=== PATIENT | male | born 1960 | race Caucasian/White ===

== ENCOUNTER 2018-09-24 10:28 | Observation (INO) ==
--- NOTE | 2018-09-14 16:32 | Anesthesiology Consultation ---
Date of Service September 14, 2018 Assessment & Plan (1) Encounter for pre-operative examination: S/P cysto/stent extraction, TURP: 07/30/18: LMA#5 at [facility] Chart Review Chart Review: Acceptable Risk for Surgery and Patient NOT seen in Pre Admission Testing History Surgery Operation Date: 09/24/18 13:10 Proposed Procedures p Transurethral Resection Prostate - Mono SanSanjeev Duran II, DO Height/Weight Height: 6 ft Weight: 102.058 kg Allergies Allergy/AdvReac Type Severity Reaction Status Date / Time No Known Allergies Allergy Verified 09/14/18 13:36 Medications Home Medications Medication Instructions Recorded Confirmed Last Taken meloxicam 15 mg PO BID 07/01/18 09/14/18 08/25/18 tamsulosin [Flomax] 0.8 mg PO HS 07/01/18 09/14/18 08/24/18 finasteride 5 mg PO QAM 07/16/18 09/14/18 08/25/18 Past Medical History Medical History Enlarged prostate (Inactive) Hearing loss in left ear History of acute pancreatitis 4 YR AGO History of bladder stone Snores Past Surgical History Surgical History History of ERCP numerous for exam and stent exchange - no longer has stent History of biliary duct stent placement History of colonoscopy History of cystoscopy for stone removal Social History Smoking Status: Former smoker tobacco type: cigarettes Smoking cigarettes per day: ~2cig/day x 30+ years Do You Dip or Chew Tobacco: No Smoking End Date: 22 YR AGO Hx Alcohol Use: No Hx Substance Use: No substance use type: does not use Testing Laboratory Results 09/10/18 WBC 4.86 H/H 15.0/42.9 PLATELETS 210 SODIUM 139 POTASSIUM 4.4 CHLORIDE 106 CO2 27 BUN 26 CREATININE 0.90 GLUCOSE 95 08/25/18 UA negative bacteria, + epithelials, + WBC, + RBC 08/28/18 URINE CULTURE- coag negative staphylococcus-- rx'd macrobid BID x 7 days per surgeon* Electrocardiogram Date: 07/21/18 SB at 58bpm. Otherwise "normal ECG." Chest X-Ray Date: 07/21/18 Findings: + NAD Cervical Spine Date: 10/15/17 1. No acute cervical spine fracture or subluxation. 2. Moderate disc space narrowing at C5-C6. Otherwise, mild multilevel degenerative changes.
[~2018-09-24 10:28] MED LIST: LR 15ML/HR IV SCH
--- NOTE | 2018-09-24 11:29 | History & Physical Bridge Note ---
Date of Service September 24, 2018 History & Physical Bridge Note I have examined the patient, reviewed the History & Physical and in the interval since the performance of the History & Physical I have noted the following changes of clinical significance: no changes noted
[2018-09-24] MEDS ORDERED: MIDAZOLAM HCL 1 MG/ML 2ML VIAL ONE (12:13)
[2018-09-24] MEDS ORDERED: fentaNYL citrate 100 MCG/2 ML VIAL ONE ×5 (12:13→13:30)
[2018-09-24] MEDS: CEFAZOLIN 2000MG 2,000 MG/15 ML SYR IV SCH ×3 (12:16→20:22)
[2018-09-24] MEDS ORDERED: KETOROLAC 30 MG/ML VIAL IV PRN (12:17)
[2018-09-24] MEDS ORDERED: ONDANSETRON INJ 2 MG/ML 2 ML VIAL IV PRN ×2 (12:17→15:22)
[2018-09-24] MEDS ORDERED: ATROPINE SULFATE 0.1 MG/ML 10ML SYR IV PRN (12:17)
[2018-09-24] MEDS ORDERED: HYDROmorphone INJ 2 MG/ML SYR/VIAL ONE (13:36)
[2018-09-24] MEDS ORDERED: ONDANSETRON INJ 2 MG/ML 2 ML VIAL ONE (13:37)
[2018-09-24] MEDS ORDERED: PROPOFOL IV EMULSION 10 MG/ML 20 ML VIAL IV ONE (13:37)
[2018-09-24] MEDS ORDERED: LIDOCAINE HCL 2% 2 ML VIAL/AMP(20MG/ML) INFIL ONE (13:37)
[2018-09-24] MEDS ORDERED: KETOROLAC 30 MG/ML VIAL ONE (13:37)
[2018-09-24] MEDS ORDERED: DEXAMETHASONE SOD INJ 4 MG/ML VIAL ONE (13:37)
[2018-09-24] MEDS ORDERED: BELLADONNA/OPIUM SUPP 60 MG SUPP PR ONE (13:41)
[2018-09-24] MEDS ORDERED: BELLADONNA/OPIUM SUPP 60 MG SUPP PR PRN ×2 (13:48→15:22)
--- NOTE | 2018-09-24 13:49 | Operative Report ---
Post Operative Report Pre & Post Diagnosis Operation Date: 09/24/18 12:05 Pre-Op Diagnosis: Benign Prostatic Hyperplasia with Retention Post-Op Diagnosis: Benign Prostatic Hyperplasia with Retention Procedure Operation Date: 09/24/18 12:05 Actual Procedures p Transurethral Resection Prostate - Mono Duran II, DO Surgeon Mono Duran II, DO Planetarium Technician None Estimated Blood Loss 10 Findings Consistent with Post-Op Diagnosis Very large lateral lobes with good previous resection of median lobe and no significant median lobe adenoma. Specimens TURP chips. Drains [address]. Anesthesia Type General Complications none Disposition Disposition: Recovery Room Indications Patient with large lateral lobe of prostate with reoccurance of obstruction and gross hematuria. Risks and benefits discussed at length. Description of Procedure Patient was consented and brought back to the operating room. Patient was placed under anesthesia in the supine position and moved to the dorsal lithotomy position. Patient was prepped and draped in the regular sterile fashion. A time out was completed. A 30degree Cystoscope was placed into the bladder and the entire bladder was examined. The UO's were identified. Patient had good resection of the median lobe. The lateral lobes were found to be large and obstructing. The resetion scope was placed. The lateral lobes were resected. A significant anterior portion of tissue was also hanging into the resection Field and this was resected as well. The lateral lobes were resected to the capsule. No bleeding or severe issues or areas of concern were discovered after all bleeding areas were controlled with cautery. A large channel had been created without tissue obstructing. The chips were irrigated and sent for analysis. The bladder was inspected and no areas of concern were discovered. The scope was removed. A [address] catheter was placed and set to drainage. It was irrigated clear. The patient was cleaned, aroused from anesthesia, and transferred to the pacu in stable condition having tolerated the procedure well with no complications. I was present and participated in all aspects of the procedure. The patient will be monitored in the PACU until transferred. I attest to the content of the Intraoperative Record and any orders documented therein. Any exceptions are noted below.
[2018-09-24] MEDS: fentaNYL citrate 100 MCG/2 ML VIAL IV PRN ×4 (13:57→14:12)
--- NOTE | 2018-09-24 14:30 | Anesthesiology Progress Note ---
Date of Service September 24, 2018 Anesthesia Post Procedure Vital Signs Vital Signs: Temp Pulse Resp BP BP Pulse Ox 09/24/18 14:20 69 21 131/84 98 09/24/18 14:10 74 19 130/77 100 09/24/18 14:00 77 20 138/81 100 09/24/18 13:50 36 C L 83 18 131/78 99 09/24/18 10:53 36.8 C 66 18 110/69 97 Pain Intensity Penis: Pain Intensity: 0 Transfer of Care Handoff Completed per policy Notes Mental Status: alert / awake / arousable Patient Amnestic to Procedure: Yes Nausea / Vomiting: adequately controlled Pain: adequately controlled Airway Patency, RR, SpO2: stable & adequate BP & HR: stable & adequate Hydration State: stable & adequate Anesthetic Complications: no major complications apparent
[2018-09-24] MEDS ORDERED: MoRPHine SULFATE 2 MG/ML CARP IV PRN (15:22)
[2018-09-24] MEDS ORDERED: ACETAMINOPHEN 325 MG TAB PO PRN (15:22)
[2018-09-24] MEDS ORDERED: PHENAZOPYRIDINE HCL 200 MG TAB PO PRN (15:22)
[2018-09-24] MEDS: SODIUM CHLORIDE 0.9% 1000ML 1,000 ML IV SCH (15:33)
[2018-09-24] MEDS: OXYCODONE HCL IR 5 MG TAB (IMMEDIATE RELEASE) PO PRN ×2 (15:39→23:35)
[2018-09-24] MEDS: DOCUSATE SODIUM 100 MG CAP PO SCH (20:23)
[2018-09-24] MEDS ORDERED: TAMSULOSIN HCL 0.4 MG CAP PO SCH (21:00)
[2018-09-25] MEDS: SODIUM CHLORIDE 0.9% 1000ML 1,000 ML IV SCH (03:29)
[2018-09-25] MEDS: CEFAZOLIN 2000MG 2,000 MG/15 ML SYR IV SCH (04:35)
[2018-09-25 07:32] LABS: Basophils # (auto) 0.02 K/uL (0-0.2); Basophils % (auto) 0.3 %; Eosinophils # (auto) 0.07 K/uL (0-0.5); Hematocrit (blood only) 39.7 % (42-52); Hemoglobin 13.3 g/dL (14.0-18.0); Immature Granulocytes # (auto) 0.01 K/uL (0.00-0.02); Immature Granulocytes % (auto) 0.1 %; Lymphocytes # (auto) 0.89 K/uL (1.2-3.4); Lymphocytes % (auto) 13.2 %; Mean Corpuscular Hgb Conc 33.5 g/dL (32-36); Mean Corpuscular Volume 93.2 fL (80-100); Mean Platelet Volume 10.1 fL (7.4-10.4); Monocytes # (auto) 0.48 K/uL (0.11-0.59); Monocytes % (auto) 7.1 %; Neutrophils # (auto) 5.28 K/uL (1.4-6.5); Neutrophils % (auto) 78.3 %; Platelet Count 152 K/uL (130-400); RDW Coefficient of Variation 13.3 % (11.5-14.5); RDW Standard Deviation 45.2 fL (36.4-46.3); Red Blood Count 4.26 M/uL (4.7-6.1); White Blood Count 6.75 K/uL (4.8-10.8)
[2018-09-25 08:02] LABS: Albumin Level 3.1 gm/dl (3.4-5.0); BUN Creatinine Ratio 20.4 (10-20); Calcium 8.5 mg/dl (8.5-10.1); Creatinine Clr Calc Pharmacy 100.7 ml/min; Est GFR (African American) 96.4; Est GFR (Non-African American) 83.2; Potassium 4.4 mmol/L (3.5-5.1)
[2018-09-25 08:05] LABS: Albumin Globulin Ratio 1.2 (0.9-2); Bilirubin,Total 0.4 mg/dl (0.2-1); Globulin 2.5 gm/dl (2.5-4.0); Total Protein 5.6 gm/dl (6.4-8.2)
[2018-09-25] MEDS: DOCUSATE SODIUM 100 MG CAP PO SCH (08:11)
[2018-09-25] MEDS ORDERED: FINASTERIDE 5 MG TAB PO SCH (09:00)
--- NOTE | 2018-09-25 10:59 | Urology Progress Note ---
Date of Service September 25, 2018 Assessment & Plan (1) BPH (benign prostatic hyperplasia): POD #1 s/p TURP. Doing very well. Discontinue CBI. Will coordinate discharge with Gill. Worrisome hematuria symptoms discussed. Subjective 58 YO male POD #1 s/p TURP. Patient is feeling well this morning. Walked several laps in hallway. CBI 90% clamped upon exam and tolerating. Urine out clear yellow. Reports some generalized discomfort with Gill, tolerable. No fevers/chills. No nausea/vomiting. Review of Systems Review of Systems: All systems reviewed & are unremarkable except as noted in HPI & below Physical Exam Physical Exam: WN/WD NAD. Resp effort normal. No JVD. Abd soft/nontender. : bladder nontender/nondistended. CBI clamped, clear yellow urine. A&O x3, appropriate affect. Results & Data Vital Signs (Past 12 Hours) Vital Signs Temp Pulse Pulse Resp BP BP Pulse Ox 09/25/18 07:51 36.7 C 62 16 124/80 98 09/25/18 02:52 36.7 C 82 16 109/68 96 09/24/18 23:30 09/24/18 22:58 36.6 C 60 16 112/67 95 Pulse Ox 09/25/18 07:51 09/25/18 02:52 09/24/18 23:30 95 09/24/18 22:58
--- NOTE | 2018-09-28 07:20 | Discharge Summary ---
Date of Service September 28, 2018 Admission HPI Per Admitting Provider See Admission H&P Admission Exam Per Admitting Provider See Admission Note. Principal Diagnosis BPH with obstruction Discharge Exam ENMT Mouth: no dentition abnormality Mallampati Class: I Neck normal visual inspection Respiratory normal respiratory effort Auscultation: lungs clear to auscultation bilaterally Cardiovascular Rate/Rhythm: regular rate and regular rhythm Gastrointestinal (Abdomen) Inspection/Auscultation: abdomen normal to inspection; abdomen not distended Skin no rashes, warm and dry Psychiatric Orientation: alert Genitourinary Gill light pink after clamping CBI Discharge Data Allergies Allergy/AdvReac Type Severity Reaction Status Date / Time No Known Allergies Allergy Verified 09/24/18 10:47 Procedures Performed Operation Date: 09/24/18 12:05 Actual Procedures p Transurethral Resection Prostate(Not Applicable) - Mono Duran II, DO Hospital Course (1) BPH (benign prostatic hyperplasia): POD #1 s/p TURP. Doing very well. Discontinue CBI. Will coordinate discharge with Gill. Worrisome hematuria symptoms discussed. Ready for discharge after staying clear with CBI off. Total Time Total Time Spent Total Time Spent (In Minutes): 10 Total Time Includes: Examination of the Patient, Discharge Planning, Medication Reconciliation and Communication With Other Providers Discharge Plan Discharge Items Patient Disposition: Home - Self-Care Reason For Visit: Benign Prostatic Hyperplasia w/Obstruction, Urina Discharge Diagnosis: same Discharge Goals: Improve disease control and Therapeutic intervention Activity: Per 'Additional Instructions' section Lifting: No more than 10 pounds Bathing Comment: Ok to shower. No soaking in tub/pool. Sexual Activity: Wait until after follow-up appointment Exercise/Sports: Gradually increase as tolerated Driving/Machine Use Comment: Please do not drive while taking Narcotic pain medication. Non-emergency contact: Urologist Call non-emergency contact if: you have any medication questions and your temperature is above 101 Follow-up/Referrals: Josie Wray MD [Primary Care Provider] - Diet: Regular Addtl Provider Instructions: Please keep all follow up appointments at the Urology office as scheduled. Call office at [phone] if you have any questions or concerns. Gill: call us right away if not draining. You will have blood in the urine for the next several weeks. Clean twice daily with soap and water. Antibiotics (Bactrim) finish completely as prescribed. Bowels: Take stool softener (Colace) twice daily for 2 weeks, then as needed for constipation. Pain: take Tylenol for mild discomfort. Take pain medication (Tramadol) as needed for moderate/severe pain. Report to ER if pain is not controlled/worsening. Thanks for allowing us to participate in your care! Prescriptions: New docusate sodium [Colace] 100 mg capsule 100 mg PO BID PRN (Reason: constipation) Qty: 60 RF: 0 sulfamethoxazole-trimethoprim [Bactrim DS] 800-160 mg tablet 1 tab PO BID 5 Days Qty: 10 RF: 0 tramadol 50 mg tablet 50 mg PO Q8H PRN (Reason: pain) Qty: 7 RF: 0 Continued tamsulosin [Flomax] 0.4 mg capsule 0.8 mg PO HS RF: 0 sulfamethoxazole-trimethoprim [Bactrim DS] 800-160 mg Tablet 1 tab PO BID RF: 0 Discontinued finasteride 5 mg Tablet 5 mg PO QAM RF: 0 Stand-Alone Forms: [facility] Discharge Orders: Discharge Order (Routine); Ordered 09/25/18 Ordered By: Dominique Duff Admission Data Admit Date/Time: 09/24/18 14:26 Attending Provider: Mono Duran II Admit Provider: Mono Duran II Primary Care Provider: Josie Wray Service: Surgical Services Other Interventions: Discharge Summary Assessment (RN) Last Done: 09/25/18 11:16 DC Date/Time DO NOT enter until pt leaves facility: 09/25/18 11:41
== END 2018-09-25 11:41 | disposition home or self-care (01) ==
LOC: 3W 10:28 → ASU 10:28

== ENCOUNTER 2021-01-15 12:56 | Inpatient (IN) ==
--- NOTE | 2021-01-15 14:40 | XRay Report ---
TWO VIEW CHEST CLINICAL HISTORY: Cough. FINDINGS: PA and lateral chest radiographs are compared to study dated 07/21/2018. The cardiomediastina l silhouette is unremarkable. Multifocal airspace consolidation is typical for pneumonia. Trace pleur al effusions are suspected There is no pneumothorax. The bony thorax appears intact. IMPRESSION: Multifocal airspace consolidation is typical for pneumonia. Radiographic follow-up to res olution is recommended. ACT 112: Negative or not required by law. Electronically signed by: Brandt Blas M.D. 01/15/2021 2:39 PM
[2021-01-15] MEDS ORDERED: ALBUT/IPRATROP 3MG/0.5MG NEB 3 ML VIAL NEB STA (15:51)
[2021-01-15] MEDS ORDERED: dexAMETHasone**PF** 10 MG/ML VIAL IV ONE (15:51)
[2021-01-15] MEDS ORDERED: SODIUM CHLORIDE 0.9% 1000ML 500 ML IV ONE (15:52)
--- NOTE | 2021-01-15 15:56 | Emergency Department Note ---
Impression & Plan Hypoxia, SOB (shortness of breath), Pneumonia, COVID-19 Admission ED Provider Note NAME: ZEB SEGUNDO AGE: 60 SEX: M : 1960 ARRIVES VIA: Walk-In INFORMANT: [Patient] ED PROVIDER(S): [Brandt Kilgore MD] CHIEF COMPLAINT: Shortness of breath HISTORY OF PRESENT ILLNESS: The patient is a 60-year-old male who presents to the ER with flulike symptoms. He has been sick for 8 days. The patient has had a cough, a stuffy nose, fatigue, weakness, chills, body aches, fever and shortness of breath. He has lost his taste and smell. He has a chest tightness. No vomiting, no diarrhea. The patient is not vaccinated for COVID-19 or influenza. His is sick with similar symptoms. The patient states that for the last several days, his breathing has worsened. He feels quite short of breath. In triage, his oxygen saturation was low and he was placed on oxygen. REVIEW OF SYSTEMS: See HPI for pertinent positives and negatives. A total of ten systems were reviewed and were otherwise negative. PMHx/PSHx: See Below SOCIAL HISTORY: See Below. PHYSICAL EXAM: GENERAL: Patient is in mild respiratory distress. HEENT: No acute trauma, normocephalic atraumatic, mucous membranes moist, no nasal congestion, no scleral icterus. NECK: No stridor, no adenopathy, no meningismus, trachea is midline. LUNGS: Crackles heard bilaterally. Breath sounds diminished. Dry cough noted. Increased respiratory rate, the patient does appear mildly short of breath. No wheezing. HEART: Without murmurs gallops or rubs, regular rate and rhythm. ABDOMEN: Soft, nontender, bowel sounds positive, no hernias, no peritonitis. EXTREMITIES: No cyanosis or edema, full range of motion of all the joints without pain or difficulty, no signs for acute trauma. NEUROLOGIC: Oriented x 3, no acute motor or sensory deficits, no focal weakness. SKIN: No rash, no jaundice, no diaphoresis. DIFFERENTIAL DIAGNOSIS: Reactive airway disease, pneumonia, pneumothorax, COVID-19, influenza, COPD, CHF, infection, cardiac ischemia, pulmonary embolism, bronchitis, musculoskeletal, gastrointestinal, as well as other pathologies. EMERGENCY DEPARTMENT COURSE/PROCEDURES: ECG: Indication was shortness of breath. The ECG shows a normal sinus rhythm with a rate of 82. There is no ST elevation, no PVCs. QTC is 425. Continuous Cardiac Monitoring: An order was placed for continuous cardiac monitoring. The monitor shows a rate of 91 with normal sinus rhythm. Critical Care Note: I have personally spent 43 minutes of critical care time in the direct management of this patient. This includes bedside care, interpretation of diagnostic studies, and testing, discussion with consultants, patient, and family members, and other required patient management activities. This 43 minutes is in excess of all separately billable procedures. MEDICAL DECISION MAKING: There is no leukocytosis, in fact, the white count is somewhat low and more consistent with a viral infection. There is a normal hemoglobin and platelet co unt. No worrisome coagulopathy. Potassium and sodium both slightly low but not in need of emergent correction. No renal failure. No concerning liver enzyme elevation. ECG shows a sinus rhythm, no ST elevation or acute ischemia. Cardiac enzyme testing x1 is not consistent with acute cardiac injury. Covid testing returned positive. Influenza testing returned negative. Chest x-ray does show patchy bilateral infiltrates consistent with pneumonia, likely viral pneumonia. On exam, the patient was visibly short of breath. He was noted to be hypoxic in triage. Patient was given IV saline, 500 cc. He was given oral Tylenol, and a DuoNeb, IV Decadron. He was maintained on O2 supplementation. The patient has Covid pneumonia. He presents hypoxic and visibly short of breath. A hospital stay is warranted. I spoke with the patient and case management. The on-call hospitalist was consulted. Past Med/Surg History Medical History Enlarged prostate Hearing loss in left ear History of acute pancreatitis 4 YR AGO History of bladder stone Hyperglycemia Necrotizing pancreatitis Snores Surgical History History of biliary duct stent placement History of colonoscopy History of cystoscopy for stone removal History of ERCP numerous for exam and stent exchange - no longer has stent Family History Mother Family history of skin cancer Social History Smoking Status: Former smoker Cigarettes Per Day: ~2cig/day x 30+ years; Second Hand Exposure: No; Hx Alcohol Use: No Hx Substance Use: No Preferred Language: Chadian Communication Ability: Effective Visual Impairment: No Limitations Historic Interpreter Required: No Beliefs That Will Affect Care: None Current Living Situation: Spouse Feels Safe at Home: Yes Assistive Devices: Glasses Allergies Allergies Allergy/AdvReac Type Severity Reaction Status Date / Time No Known Allergies Allergy Verified 01/15/21 16:50 Home Meds Home Medications Medication Instructions Recorded Confirmed acetaminophen 500 mg capsule 1,000 mg PO Q6H PRN 01/15/21 01/15/21 ascorbic acid (vitamin C) 125 mg 125 mg PO QAM 01/15/21 01/15/21 chewable tablet (Vitamin C) cholecalciferol (vitamin D3) 25 25 mcg PO QAM 01/15/21 01/15/21 mcg (1,000 unit) tablet (Vitamin D3) zinc 50 mg tablet 50 mg PO QAM 01/15/21 01/15/21 Results & Data (ED) Vital Signs Vital Signs - 24 hr 01/15/21 12:56 01/15/21 13:05 01/15/21 16:35 Temperature 36 C L Temperature Source Temporal Artery Scan Pulse Rate 91 H Pulse Rate [Right Finger] 84 Pulse Rate from SpO2 Sensor Pulse Rhythm Pulse Rhythm [Right Finger] Pulse Strength [Right Finger] Respiratory Rate 18 24 Respiratory Effort / Characteristics Non-Labored Non-Labored Spontaneous Respiratory Depth Normal Respiratory Pattern Regular Blood Pressure 129/78 Blood Pressure [Right Arm] Blood Pressure Mean 95 Blood Pressure Mean [Right Arm] Blood Pressure Position Right Lateral Pulse Oximetry 96 90 94 Oxygen Delivery Method Nasal Cannula Room Air Nasal Cannula Oxygen Flow Rate 4 4 Sepsis Recent Fever Within 48 Hours No Sepsis New/Unexplained Change in Mental Status No Sepsis Action Taken by Nursing No Action Required 01/15/21 16:46 01/15/21 16:47 01/15/21 16:50 Temperature 37.9 C H Temperature Source Oral Pulse Rate 84 Pulse Rate [Right Finger] 85 Pulse Rate from SpO2 Sensor Pulse Rhythm Regular Pulse Rhythm [Right Finger] Regular Pulse Strength [Right Finger] Normal Respiratory Rate 22 22 Respiratory Effort / Characteristics Non-Labored Respiratory Depth Normal Respiratory Pattern Regular Blood Pressure Blood Pressure [Right Arm] 137/87 Blood Pressure Mean Blood Pressure Mean [Right Arm] 103 Blood Pressure Position Pulse Oximetry 95 95 Oxygen Delivery Method Nasal Cannula Nasal Cannula Oxygen Flow Rate 95 Sepsis Recent Fever Within 48 Hours Sepsis New/Unexplained Change in Mental Status Sepsis Action Taken by Nursing 01/15/21 16:56 01/15/21 17:00 01/15/21 17:30 Temperature Temperature Source Pulse Rate 88 87 Pulse Rate [Right Finger] Pulse Rate from SpO2 Sensor 87 89 93 H Pulse Rhythm Pulse Rhythm [Right Finger] Pulse Strength [Right Finger] Respiratory Rate 16 15 Respiratory Effort / Characteristics Respiratory Depth Respiratory Pattern Blood Pressure 137/87 140/91 116/88 Blood Pressure [Right Arm] Blood Pressure Mean 103 107 97 Blood Pressure Mean [Right Arm] Blood Pressure Position Pulse Oximetry 94 95 97 Oxygen Delivery Method Nasal Cannula Nasal Cannula Nasal Cannula Oxygen Flow Rate 4 4 4 Sepsis Recent Fever Within 48 Hours Sepsis New/Unexplained Change in Mental Status Sepsis Action Taken by Retirement Medications Current Medication List: was personally reviewed by me Laboratory Data Attestation: I reviewed the patient's lab results. Result diagrams: 01/15/21 16:43 01/15/21 16:43 Lab Results 01/15/21 01/15/21 01/15/21 Range/Units 16:02 16:02 16:02 WBC (4.8-10.8) K/uL RBC (4.7-6.1) M/uL Hgb (14.0-18.0) g/dL Hct (42-52) % MCV (80-100) fL MCH (25-34) pg MCHC (32-36) g/dL RDW Std Deviation (36.4-46.3) fL RDW Coeff of Nargis (11.5-14.5) % Plt Count (130-400) K/uL MPV (7.4-10.4) fL Immature Gran % (Auto) % Neut % (Auto) % Lymph % (Auto) % [place] % (Auto) % Eos % (Auto) % Baso % (Auto) % Neut # (Auto) (1.4-6.5) K/uL Lymph # (Auto) (1.2-3.4) K/uL [place] # (Auto) (0.11-0.59) K/uL Eos # (Auto) (0-0.5) K/uL Baso # (Auto) (0-0.2) K/uL Immature Gran # (Auto) (0.00-0.02) K/uL PT (9.0-12.0) Seconds INR (0.9-1.1) APTT (21.0-31.0) Seconds PTT Ratio Sodium (136-145) mmol/L Potassium (3.5-5.1) mmol/L Chloride (98-107) mmol/L Carbon Dioxide (21-32) mmol/L Anion Gap (3-11) BUN (7-18) mg/dl Creatinine (0.6-1.4) mg/dl Est Cr Clr Drug Dosing ml/min Est GFR ( Amer) ml/min Est GFR (Non-Af Amer) ml/min BUN/Creatinine Ratio (10-20) Glucose (70-99) mg/dl Calcium (8.5-10.1) mg/dl Magnesium (1.8-2.4) mg/dl Total Bilirubin (0.2-1) mg/dl AST (15-37) U/L ALT (12-78) U/L Alkaline Phosphatase (45-117) U/L Troponin I (0-0.045) ng/ml Total Protein (6.4-8.2) gm/dl Albumin (3.4-5.0) gm/dl Globulin (2.5-4.0) gm/dl Albumin/Globulin Ratio (0.9-2) SARS-CoV-2 (PCR) POSITIVE A* (Negative) Influ A Molecular Assay Negative (Negative) Influ B Molecular Assay Negative (Negative) SARS-CoV-2, RNA, NAAT Cancelled 01/15/21 01/15/21 01/15/21 Range/Units 16:43 16:43 16:43 WBC 3.97 L (4.8-10.8) K/uL RBC 5.02 (4.7-6.1) M/uL Hgb 15.8 (14.0-18.0) g/dL Hct 45.7 (42-52) % MCV 91.0 (80-100) fL MCH 31.5 (25-34) pg MCHC 34.6 (32-36) g/dL RDW Std Deviation 42.4 (36.4-46.3) fL RDW Coeff of Nargis 12.6 (11.5-14.5) % Plt Count 133 (130-400) K/uL MPV 9.3 (7.4-10.4) fL Immature Gran % (Auto) 0.3 % Neut % (Auto) 75.7 % Lymph % (Auto) 17.9 % [place] % (Auto) 5.8 % Eos % (Auto) 0.0 % Baso % (Auto) 0.3 % Neut # (Auto) 3.01 (1.4-6.5) K/uL Lymph # (Auto) 0.71 L (1.2-3.4) K/uL [place] # (Auto) 0.23 (0.11-0.59) K/uL Eos # (Auto) 0.00 (0-0.5) K/uL Baso # (Auto) 0.01 (0-0.2) K/uL Immature Gran # (Auto) 0.01 (0.00-0.02) K/uL PT 10.7 (9.0-12.0) Seconds INR 1.1 (0.9-1.1) APTT 31.2 H (21.0-31.0) Seconds PTT Ratio 1.2 Sodium 134 L (136-145) mmol/L Potassium 3.4 L (3.5-5.1) mmol/L Chloride 98 (98-107) mmol/L Carbon Dioxide 29 (21-32) mmol/L Anion Gap 7.0 (3-11) BUN 21 H (7-18) mg/dl Creatinine 1.16 (0.6-1.4) mg/dl Est Cr Clr Drug Dosing 95.8 ml/min Est GFR ( Amer) 79.4 ml/min Est GFR (Non-Af Amer) 68.5 ml/min BUN/Creatinine Ratio 17.9 (10-20) Glucose 108 H (70-99) mg/dl Calcium 8.8 (8.5-10.1) mg/dl Magnesium 2.2 (1.8-2.4) mg/dl Total Bilirubin 0.6 (0.2-1) mg/dl AST 62 H (15-37) U/L ALT 66 (12-78) U/L Alkaline Phosphatase 63 (45-117) U/L Troponin I < 0.015 (0-0.045) ng/ml Total Protein 7.5 (6.4-8.2) gm/dl Albumin 3.2 L (3.4-5.0) gm/dl Globulin 4.3 H (2.5-4.0) gm/dl Albumin/Globulin Ratio 0.7 L (0.9-2) SARS-CoV-2 (PCR) (Negative) Influ A Molecular Assay (Negative) Influ B Molecular Assay (Negative) SARS-CoV-2, RNA, NAAT Administered Medications Discontinued Medications Acetaminophen (Acetaminophen 500 Mg Tab) 1,000 mg PO NOW STA Stop: 01/15/21 17:02 Last Admin: 01/15/21 17:40 Dose: 1,000 mg Documented by: [id number] Albuterol (Albut/Ipratrop 3mg/0.5mg Neb 3 Ml Vial) 3 ml NEB NOW STA Stop: 01/15/21 15:52 Last Admin: 01/15/21 16:35 Dose: 3 ml Documented by: [id number] Dexamethasone Sodium Phosphate (DexamethasonePf 10 Mg/Ml Vial) 6 mg IV NOW ONE Stop: 01/15/21 15:52 Last Admin: 01/15/21 16:49 Dose: 6 mg Documented by: [id number] Sodium Chloride (Nss 1000ml) 500 mls @ 999 mls/hr IV .Q31M ONE Stop: 01/15/21 16:22 Last Infusion: 01/15/21 17:27 Dose: 0 mls/hr Documented by: [id number] Admin: 01/15/21 16:48 Dose: 999 mls/hr Documented by: [id number] Imaging Data Radiologist's Impression: Chest X-Ray 01/15/21 14:08 TWO VIEW CHEST CLINICAL HISTORY: Cough. FINDINGS: PA and lateral chest radiographs are compared to study dated 07/21/2018. The cardiomediastinal silhouette is unremarkable. Multifocal airspace consolidation is typical for pneumonia. Trace pleural effusions are suspected There is no pneumothorax. The bony thorax appears intact. IMPRESSION: Multifocal airspace consolidation is typical for pneumonia. Radiographic follow-up to resolution is recommended. ACT 112: Negative or not required by law. Electronically signed by: Brandt Blas M.D. 01/15/2021 2:39 PM Discharge Plan Visit Data Chief Complaint: Shortness of Breath/Dyspnea Stated Complaint: CAN'T BREATHE ED Provider: Brandt Kilgore Discharge Problem: Hypoxia, SOB (shortness of breath), Pneumonia, COVID-19 Patient Disposition: Admitted As Inpatient Condition: Fair Forms Stand Alone Forms: Xamarin Prescriptions Prescriptions: No Action zinc 50 mg Tablet 50 mg PO QAM RF: 0 acetaminophen 500 mg Capsule 1,000 mg PO Q6H PRN (Reason: Pain) RF: 0 cholecalciferol (vitamin D3) [Vitamin D3] 25 mcg (1,000 unit) Tablet 25 mcg PO QAM RF: 0 ascorbic acid (vitamin C) [Vitamin C] 125 mg Tablet,Chewable 125 mg PO QAM RF: 0 Referrals Referrals: PCP,NO [Primary Care Provider] - Discharge Problem: Pneumonia Qualifiers: Pneumonia type: due to unspecified organism Laterality: bilateral Lung location: unspecified part of lung Qualified Code(s): J18.9 - Pneumonia, unspecified organism
[2021-01-15 17:01] LABS: Basophils # (auto) 0.01 K/uL (0-0.2); Basophils % (auto) 0.3 %; Hematocrit (blood only) 45.7 % (42-52); Hemoglobin 15.8 g/dL (14.0-18.0); Immature Granulocytes # (auto) 0.01 K/uL (0.00-0.02); Immature Granulocytes % (auto) 0.3 %; Lymphocytes # (auto) 0.71 K/uL (1.2-3.4); Lymphocytes % (auto) 17.9 %; Mean Corpuscular Hemoglobin 31.5 pg (25-34); Mean Corpuscular Hgb Conc 34.6 g/dL (32-36); Mean Platelet Volume 9.3 fL (7.4-10.4); Monocytes # (auto) 0.23 K/uL (0.11-0.59); Monocytes % (auto) 5.8 %; Neutrophils # (auto) 3.01 K/uL (1.4-6.5); Neutrophils % (auto) 75.7 %; Platelet Count 133 K/uL (130-400); RDW Coefficient of Variation 12.6 % (11.5-14.5); RDW Standard Deviation 42.4 fL (36.4-46.3); Red Blood Count 5.02 M/uL (4.7-6.1); White Blood Count 3.97 K/uL (4.8-10.8)
[2021-01-15] MEDS ORDERED: ACETAMINOPHEN 500 MG TAB PO STA (17:01)
[2021-01-15 17:13] LABS: INR 1.1 (0.9-1.1); Partial Thromboplastin Ratio 1.2; Partial Thromboplastin Time 31.2 Seconds (21.0-31.0); Prothrombin Time 10.7 Seconds (9.0-12.0)
[2021-01-15 17:18] LABS: Influenza A virus by PCR Negative (Negative); Influenza B virus by PCR Negative (Negative)
[2021-01-15 17:36] LABS: Alanine Aminotransferase 66 U/L (12-78); Albumin Level 3.2 gm/dl (3.4-5.0); Aspartate Aminotransferase 62 U/L (15-37); BUN Creatinine Ratio 17.9 (10-20); Blood Urea Nitrogen 21 mg/dl (7-18); Calcium 8.8 mg/dl (8.5-10.1); Carbon Dioxide 29 mmol/L (21-32); Chloride 98 mmol/L (98-107); Creatinine Clr Calc Pharmacy 95.8 ml/min; Est GFR (African American) 79.4 ml/min; Est GFR (Non-African American) 68.5 ml/min; Glucose 108 mg/dl (70-99); Magnesium 2.2 mg/dl (1.8-2.4); Potassium 3.4 mmol/L (3.5-5.1); Sodium 134 mmol/L (136-145)
[2021-01-15 17:41] LABS: Albumin Globulin Ratio 0.7 (0.9-2); Alkaline Phosphatase 63 U/L (45-117); Bilirubin,Total 0.6 mg/dl (0.2-1); Globulin 4.3 gm/dl (2.5-4.0); Total Protein 7.5 gm/dl (6.4-8.2); Troponin I < 0.015 ng/ml (0-0.045)
--- NOTE | 2021-01-15 17:58 | Electrocardiogram Report ---
Test Reason : Blood Pressure : / mmHG Vent. Rate : 082 BPM Atrial Rate : 082 BPM P-R Int : 164 ms QRS Dur : 088 ms QT Int : 364 ms P-R-T Axes : 037 -17 036 degrees QTc Int : 425 ms Poor data quality, interpretation may be adversely affected Normal sinus rhythm Possible Left atrial enlargement Abnormal ECG When compared with ECG of 21-JUL-2018 09:34, T wave amplitude has decreased in Anterior leads Confirmed by Alexandru Cedillo ([id number]) on 01/15/2021 5:58:21 PM Referred By: Confirmed By:Daniel Cedillo
--- NOTE | 2021-01-15 18:20 | History & Physical Report ---
Date of Service January 15, 2021 Assessment & Plan (1) COVID-19: Plan: Presents with 9 days of symptoms, hypoxic on arrival, chest x-ray with bilateral infiltrates. With lymphopenia and leukopenia, mild transaminitis, and mild dehydration with hyponatremia and hypokalemia. With fever on arrival here. With risk factor of obesity for severe disease -Admit to medical floor with telemetry, Covid unit/precautions -Continue supplemental O2 to keep pulse ox greater than 90 of 92% -Incentive spirometer, flutter valve -Scheduled duo nebs at least x24 hours -Prone positioning or side positioning encouraged -Follow CBC, CMP, CRP in the morning -Continue dexamethasone 6 mg IV once daily x10-day course -Not a candidate for Remdesivir as he is at day 9 of his illness (2) Pneumonia: Plan: As above, secondary to Covid-19 (3) Hypoxia: Plan: As above, secondary to pneumonia (4) BPH (benign prostatic hyperplasia): Plan: No ongoing issues since TURP (5) Abnormal LFTs: Plan: Mild elevation of AST likely secondary COVID-19 flexion -Follow CMP in the morning (6) Hypokalemia: Plan: Potassium low at 3.4 on arrival, secondary to poor p.o. intake and dehydration Replace with po KCl 20meq po x 1 (7) Epigastric abdominal pain: Plan: Patient with epigastric abdominal pain he feels that is exactly like previous mild flareups of his pancreatitis It does radiate through to the back somewhat and is a 4/10 in severity Tylenol as needed for pain Lipase normal Follow clinically Start Pepcid 20 mg p.o. twice daily in case this is more of a gastritis Plan: DVT prophylaxis-Lovenox 0.5 mg/KG SQ twice daily Disposition-admit to medical/telemetry floor with Covid precautions Full code History of Present Illness Chief Complaint: Shortness of breath Primary Care Provider: NO PCP This patient is a 60-year male with history of BPH and chronic prostatitis now s/p TURP, necrotizing pancreatitis, and a former smoker, who presents to the ER with 8 days of cough, stuffy nose, fatigue, weakness, body aches, and fever/chills and shortness of breath. He also complains of a loss of taste and smell and chest tightness. No nausea/vomiting or diarrhea. He does feel some epigastric abdominal pain that is typical for him when he has a mild flareup of his pancreatitis. His is sick with similar symptoms. He is not vaccinated for Covid. In the ER, he was found to be Covid-19+, flu A/B-, with leukopenia and lymphopenia on CBC, mild hypokalemia and hyponatremia, mild elevation of AST, negative troponin. His chest x-ray showed a multifocal airspace consolidation typical for bilateral pneumonia with trace pleural effusions. He was noted to be hypoxic and was placed on 4 L nasal cannula, he also had a fever in the ER. He will be admitted for Covid-19 with pneumonia and acute respiratory failure with hypoxia. Allergies Allergy/AdvReac Type Severity Reaction Status Date / Time No Known Allergies Allergy Verified 01/15/21 16:50 Home Medications Medication Instructions Recorded Confirmed Type acetaminophen 500 mg capsule 1,000 mg PO Q6H PRN 01/15/21 01/15/21 History ascorbic acid (vitamin C) 125 mg 125 mg PO QAM 01/15/21 01/15/21 History chewable tablet (Vitamin C) cholecalciferol (vitamin D3) 25 25 mcg PO QAM 01/15/21 01/15/21 History mcg (1,000 unit) tablet (Vitamin D3) zinc 50 mg tablet 50 mg PO QAM 01/15/21 01/15/21 History Past Med/Surg History Medical History (Updated 01/15/21 @ 22:59 by Sarita Morin MD) Enlarged prostate Hearing loss in left ear History of acute pancreatitis 4 YR AGO History of bladder stone Hyperglycemia Necrotizing pancreatitis Snores Surgical History History of biliary duct stent placement History of colonoscopy History of cystoscopy for stone removal History of ERCP numerous for exam and stent exchange - no longer has stent Family History Mother Family history of skin cancer Social History (Updated 01/15/21 @ 22:46 by Sarita Morin MD) Smoking Status: Former smoker Age Quit Using Tobacco: 30; Cigarettes Per Day: ~2cig/day x 30+ years; Second Hand Exposure: No; Do You Dip or Chew Tobacco: No; Hx Alcohol Use: No Hx Substance Use: No Preferred Language: Luxembourgish Communication Ability: Effective Visual Impairment: No Limitations Shoeblack Required: No Beliefs That Will Affect Care: None Current Living Situation: Spouse Other Information That Helps Us Care for You: No Feels Safe at Home: Yes Safety Concerns: Feels Safe At This Time Assistive Devices: Glasses Review of Systems Review of Systems: All systems reviewed & are unremarkable except as noted in HPI & below Physical Exam Constitutional: WD/WN, vitals as above Eyes: PERRL, conjunctivae normal, anicteric sclerae ENMT: external ear and nose normal, oropharynx normal Neck: trachea midline, no thyromegaly Respiratory: normal respiratory effort and + cough Auscultation: + crackles (lower lung doyle bilat); no rhonchi and no wheezes Cardiovascular: RRR, no murmur, no edema Chest (Breasts): Chest: normal inspection of chest Gastrointestinal (Abdomen): normal bowel sounds, soft, nontender, no hepatosplenomegaly Musculoskeletal: Extremities: extremities normal to inspection; no cyanosis and no clubbing Skin: no rashes, warm and dry Neurologic: moves all extremities and awake; no focal motor deficits Psychiatric: A+Ox3, euthymic affect Lymphatic: no lymphedema Results & Data Results & Data ([facility]) Vital Signs (Past 12 Hours) Vital Signs Temp Pulse Pulse Resp BP BP Pulse Ox 01/15/21 17:30 116/88 97 01/15/21 17:00 87 15 140/91 95 01/15/21 16:56 88 16 137/87 94 01/15/21 16:50 37.9 C H 01/15/21 16:47 85 22 137/87 95 01/15/21 16:46 84 22 95 01/15/21 16:35 84 24 94 01/15/21 13:05 36 C L 91 H 18 129/78 90 01/15/21 12:56 96 Laboratory Results 01/15/21 01/15/21 01/15/21 Range/Units 16:43 16:43 16:43 WBC 3.97 L (4.8-10.8) K/uL RBC 5.02 (4.7-6.1) M/uL Hgb 15.8 (14.0-18.0) g/dL Hct 45.7 (42-52) % MCV 91.0 (80-100) fL MCH 31.5 (25-34) pg MCHC 34.6 (32-36) g/dL RDW Std Deviation 42.4 (36.4-46.3) fL RDW Coeff of Nargis 12.6 (11.5-14.5) % Plt Count 133 (130-400) K/uL MPV 9.3 (7.4-10.4) fL Immature Gran % (Auto) 0.3 % Neut % (Auto) 75.7 % Lymph % (Auto) 17.9 % [place] % (Auto) 5.8 % Eos % (Auto) 0.0 % Baso % (Auto) 0.3 % Neut # (Auto) 3.01 (1.4-6.5) K/uL Lymph # (Auto) 0.71 L (1.2-3.4) K/uL [place] # (Auto) 0.23 (0.11-0.59) K/uL Eos # (Auto) 0.00 (0-0.5) K/uL Baso # (Auto) 0.01 (0-0.2) K/uL Immature Gran # (Auto) 0.01 (0.00-0.02) K/uL PT 10.7 (9.0-12.0) Seconds INR 1.1 (0.9-1.1) APTT 31.2 H (21.0-31.0) Seconds PTT Ratio 1.2 Sodium 134 L (136-145) mmol/L Potassium 3.4 L (3.5-5.1) mmol/L Chloride 98 (98-107) mmol/L Carbon Dioxide 29 (21-32) mmol/L Anion Gap 7.0 (3-11) BUN 21 H (7-18) mg/dl Creatinine 1.16 (0.6-1.4) mg/dl Est Cr Clr Drug Dosing 95.8 ml/min Est GFR ( Amer) 79.4 ml/min Est GFR (Non-Af Amer) 68.5 ml/min BUN/Creatinine Ratio 17.9 (10-20) Glucose 108 H (70-99) mg/dl Calcium 8.8 (8.5-10.1) mg/dl Magnesium 2.2 (1.8-2.4) mg/dl Total Bilirubin 0.6 (0.2-1) mg/dl AST 62 H (15-37) U/L ALT 66 (12-78) U/L Alkaline Phosphatase 63 (45-117) U/L Troponin I < 0.015 (0-0.045) ng/ml Total Protein 7.5 (6.4-8.2) gm/dl Albumin 3.2 L (3.4-5.0) gm/dl Globulin 4.3 H (2.5-4.0) gm/dl Albumin/Globulin Ratio 0.7 L (0.9-2) SARS-CoV-2 (PCR) (Negative) Influ A Molecular Assay (Negative) Influ B Molecular Assay (Negative) SARS-CoV-2, RNA, NAAT 01/15/21 01/15/21 01/15/21 Range/Units 16:02 16:02 16:02 WBC (4.8-10.8) K/uL RBC (4.7-6.1) M/uL Hgb (14.0-18.0) g/dL Hct (42-52) % MCV (80-100) fL MCH (25-34) pg MCHC (32-36) g/dL RDW Std Deviation (36.4-46.3) fL RDW Coeff of Nargis (11.5-14.5) % Plt Count (130-400) K/uL MPV (7.4-10.4) fL Immature Gran % (Auto) % Neut % (Auto) % Lymph % (Auto) % [place] % (Auto) % Eos % (Auto) % Baso % (Auto) % Neut # (Auto) (1.4-6.5) K/uL Lymph # (Auto) (1.2-3.4) K/uL [place] # (Auto) (0.11-0.59) K/uL Eos # (Auto) (0-0.5) K/uL Baso # (Auto) (0-0.2) K/uL Immature Gran # (Auto) (0.00-0.02) K/uL PT (9.0-12.0) Seconds INR (0.9-1.1) APTT (21.0-31.0) Seconds PTT Ratio Sodium (136-145) mmol/L Potassium (3.5-5.1) mmol/L Chloride (98-107) mmol/L Carbon Dioxide (21-32) mmol/L Anion Gap (3-11) BUN (7-18) mg/dl Creatinine (0.6-1.4) mg/dl Est Cr Clr Drug Dosing ml/min Est GFR ( Amer) ml/min Est GFR (Non-Af Amer) ml/min BUN/Creatinine Ratio (10-20) Glucose (70-99) mg/dl Calcium (8.5-10.1) mg/dl Magnesium (1.8-2.4) mg/dl Total Bilirubin (0.2-1) mg/dl AST (15-37) U/L ALT (12-78) U/L Alkaline Phosphatase (45-117) U/L Troponin I (0-0.045) ng/ml Total Protein (6.4-8.2) gm/dl Albumin (3.4-5.0) gm/dl Globulin (2.5-4.0) gm/dl Albumin/Globulin Ratio (0.9-2) SARS-CoV-2 (PCR) POSITIVE A* (Negative) Influ A Molecular Assay Negative (Negative) Influ B Molecular Assay Negative (Negative) SARS-CoV-2, RNA, NAAT Cancelled Diagnostic Findings Chest x-ray image personally reviewed by me and agree with the following report: Chest X-Ray 01/15/21 14:08 TWO VIEW CHEST CLINICAL HISTORY: Cough. FINDINGS: PA and lateral chest radiographs are compared to study dated 07/21/2018. The cardiomediastinal silhouette is unremarkable. Multifocal airspace consolidation is typical for pneumonia. Trace pleural effusions are suspected There is no pneumothorax. The bony thorax appears intact. IMPRESSION: Multifocal airspace consolidation is typical for pneumonia. Radiographic follow-up to resolution is recommended. ACT 112: Negative or not required by law. Electronically signed by: Brandt Blas M.D. 01/15/2021 2:39 PM ECG Additional Comments: ECG on 01/15/2021 at 1612 with normal sinus rhythm, normal rate, no ischemic changes Code Status & VTE Plan Code Status Full code VTE Prophylaxis Plan VTE Prophylaxis will be ordered: Yes PG Care Time/CCT Total # of Minutes Spent Total Time Spent with Patient: Total time spent is greater than 50% in coordination of care (as documented) at patient's floor/unit and/or counseling patient: Coding Level of Care Code 93355 Initial Inpt Care Lvl 3 Diagnoses Hypoxia R09.02 COVID-19 U07.1 Pneumonia J18.9 Laterality: bilateral Lung location: unspecified part of lung Pneumonia type: due to unspecified organism BPH (benign prostatic hyperplasia) N40.0 Abnormal LFTs R94.5 Hypokalemia E87.6 Epigastric abdominal pain R10.13 (1) Pneumonia Laterality: bilateral Lung location: unspecified part of lung Pneumonia type: due to unspecified organism Qualified Code(s): J18.9 - Pneumonia, unspecified organism
[2021-01-15] MEDS ORDERED: ENOXAPARIN 0.5 MG/KG SQ SCH (22:12)
[2021-01-15] MEDS ORDERED: ONDANSETRON INJ 2 MG/ML 2 ML VIAL IV PRN (22:12)
[2021-01-15] MEDS: ALBUT/IPRATROP 3MG/0.5MG NEB 3 ML VIAL NEB SCH (22:53)
[2021-01-15] MEDS ORDERED: POTASSIUM CHLORIDE CRTAB 20 MEQ TABCR PO STA (22:57)
[2021-01-16] MEDS: ENOXAPARIN 80 MG/0.8 ML SYR SQ SCH ×2 (00:28→08:42)
[2021-01-16] MEDS: FAMOTIDINE 20 MG TAB PO SCH ×2 (00:28→08:42)
[2021-01-16 06:20] LABS: Hematocrit (blood only) 41.4 % (42-52); Hemoglobin 14.4 g/dL (14.0-18.0); Lymphocytes # (auto) 0.47 K/uL (1.2-3.4); Lymphocytes % (auto) 16.4 %; Mean Corpuscular Hemoglobin 31.3 pg (25-34); Mean Corpuscular Hgb Conc 34.8 g/dL (32-36); Mean Platelet Volume 9.2 fL (7.4-10.4); Monocytes # (auto) 0.15 K/uL (0.11-0.59); Monocytes % (auto) 5.2 %; Neutrophils # (auto) 2.25 K/uL (1.4-6.5); Neutrophils % (auto) 78.4 %; Platelet Count 126 K/uL (130-400); RDW Coefficient of Variation 12.6 % (11.5-14.5); RDW Standard Deviation 41.8 fL (36.4-46.3); White Blood Count 2.87 K/uL (4.8-10.8)
[2021-01-16 07:06] LABS: Albumin Globulin Ratio 0.7 (0.9-2); Albumin Level 2.6 gm/dl (3.4-5.0); BUN Creatinine Ratio 20.7 (10-20); Bilirubin,Total 0.5 mg/dl (0.2-1); C Reactive Protein 7.04 mg/dl (0-0.29); Calcium 8.4 mg/dl (8.5-10.1); Creatinine Clr Calc Pharmacy 129.5 ml/min; Est GFR (African American) 109.5 ml/min; Est GFR (Non-African American) 94.5 ml/min; Globulin 3.8 gm/dl (2.5-4.0); Magnesium 2.2 mg/dl (1.8-2.4); Total Protein 6.4 gm/dl (6.4-8.2)
[2021-01-16 07:08] LABS: RBC Morphology Unremarkable
[2021-01-16] MEDS: ALBUT/IPRATROP 3MG/0.5MG NEB 3 ML VIAL NEB SCH ×3 (07:24→13:51)
[2021-01-16] MEDS: ASCORBIC ACID 500 MG TAB PO SCH (08:42)
[2021-01-16] MEDS: ZINC SULFATE 220 MG CAPSULE PO SCH (08:42)
[2021-01-16] MEDS: CHOLECALCIFEROL 1,000 UNITS 25 MCG TAB PO SCH (08:42)
[2021-01-16] MEDS ORDERED: DEXAMETHASONE SOD INJ 4 MG/ML VIAL ONE (08:50)
[2021-01-16] MEDS: ACETAMINOPHEN 500 MG TAB PO PRN ×2 (08:55→21:30)
[2021-01-16] MEDS: dexAMETHasone 6 MG in SYRINGE 0 ML IV SCH (08:55)
[2021-01-16] MEDS ORDERED: ALBUT/IPRATROP 3MG/0.5MG NEB 3 ML VIAL NEB PRN (16:16)
--- NOTE | 2021-01-16 20:01 | Hospitalist Progress Note ---
Date of Service January 16, 2021 Assessment & Plan (1) Acute respiratory failure with hypoxia: Plan: 2nd to #2 below. Thus far stable on [place] O2. (2) Pneumonia due to COVID-19 virus: Plan: He is about 10 days into his illness. Day #2 of dexamethasone 6mg IV daily. Given where he is in his illness Remdesivir to be of little benefit - thus deferred. We discussed proning - gave him handout on such. Cont flutter. Add incentive. Add mucinex. I am concerned by his poor airation - at risk of worsening disease - again self- proning heavily encouraged. CRP mild-moderately high - repeat in am. Check procal in am. (3) History of acute pancreatitis: Plan: Noted. Lipase yesterday normal. Lipase today normal. This does not rule out pancreatitis but makes it less likely. If pain recurs then CT a/p. (4) BPH (benign prostatic hyperplasia): Plan: On no meds for such. (5) Leukopenia: Plan: 2nd to #2 Trend CBC (6) Thrombocytopenia: Plan: 2nd to #2 Trend CBC (7) Elevated AST (SGOT): Plan: likely due to COVID infection trend check a CPK in the am to be complete (8) Obesity (BMI 30-39.9): Plan: BMI 38 (9) Hypokalemia: Plan: replaced & resolved (10) DVT prophylaxis: Plan: lovenox 0.5mg/kg BID Plan: left message for on her voicemail this evening will try to call again tomorrow Admission and Anticipated Discharge Date Admission Date: January 15, 2021 Subjective patient states that upper abd pain - which reminded him of his prior pancreatit is - is resolved today he did eat breakfast today - the "first food I've had in a while" no nausea/emesis continues with dry cough has NAYLOR; no dyspnea at rest no fevers lost taste and smell - has not returned Review of Systems Review of Systems: gen - no fevers, no chills CV - no chest pain, no orthopnea pulm - no sputum GI - no N/V musculo - no myalgias Physical Exam Physical Exam: gen - obese, NAD, coughs when he tries to take deep breaths neck - no JVD mouth - MMM heart - RRR, s1 s2, no murmur lungs - very poor airation, coughs with any deep breathing, no wheeze, mild rales bases; no increased work of breathing abd - soft NT ND BS+ ext - no edema, pulses 2+ b/l Results & Data Results & Data ([facility]) Vital Signs (Past 12 Hours) Vital Signs Temp Pulse Resp BP Pulse Ox 01/16/21 18:09 93 01/16/21 18:00 81 22 149/91 H 89 L 01/16/21 14:36 82 18 92 01/16/21 13:50 82 20 92 01/16/21 12:57 81 18 124/69 94 01/16/21 10:06 90 20 93 01/16/21 09:29 37.6 C H 90 18 94 Laboratory Results Laboratory Results - last 24 hr 01/16/21 01/16/21 01/16/21 06:01 06:01 06:01 WBC 2.87 L RBC 4.60 L Hgb 14.4 Hct 41.4 L MCV 90.0 MCH 31.3 MCHC 34.8 RDW Std Deviation 41.8 RDW Coeff of Nargis 12.6 Plt Count 126 L MPV 9.2 Immature Gran % (Auto) 0.0 Neut % (Auto) 78.4 Lymph % (Auto) 16.4 [place] % (Auto) 5.2 Eos % (Auto) 0.0 Baso % (Auto) 0.0 Neut # (Auto) 2.25 Lymph # (Auto) 0.47 L [place] # (Auto) 0.15 Eos # (Auto) 0.00 Baso # (Auto) 0.00 Immature Gran # (Auto) 0.00 RBC Morphology Unremarkable Sodium 136 Potassium 4.0 D Chloride 103 Carbon Dioxide 30 Anion Gap 3.0 BUN 18 Creatinine 0.87 Est Cr Clr Drug Dosing 129.5 Est GFR ( Amer) 109.5 Est GFR (Non-Af Amer) 94.5 BUN/Creatinine Ratio 20.7 H Glucose 131 H Calcium 8.4 L Magnesium 2.2 Total Bilirubin 0.5 AST 54 H ALT 60 Alkaline Phosphatase 54 C-Reactive Protein 7.04 H Total Protein 6.4 Albumin 2.6 L Globulin 3.8 Albumin/Globulin Ratio 0.7 L Lipase Hepatitis C Ab Screen Neg 01/16/21 06:01 WBC RBC Hgb Hct MCV MCH MCHC RDW Std Deviation RDW Coeff of Nargis Plt Count MPV Immature Gran % (Auto) Neut % (Auto) Lymph % (Auto) [place] % (Auto) Eos % (Auto) Baso % (Auto) Neut # (Auto) Lymph # (Auto) [place] # (Auto) Eos # (Auto) Baso # (Auto) Immature Gran # (Auto) RBC Morphology Sodium Potassium Chloride Carbon Dioxide Anion Gap BUN Creatinine Est Cr Clr Drug Dosing Est GFR ( Amer) Est GFR (Non-Af Amer) BUN/Creatinine Ratio Glucose Calcium Magnesium Total Bilirubin AST ALT Alkaline Phosphatase C-Reactive Protein Total Protein Albumin Globulin Albumin/Globulin Ratio Lipase 101 Hepatitis C Ab Screen PG Care Time/CCT Total # of Minutes Spent Total Time Spent with Patient: Total time spent is greater than 50% in coordination of care (as documented) at patient's floor/unit and/or counseling patient: Coding Level of Care Code 49886 Subseq Hosp Care Lvl 2 Diagnoses Acute respiratory failure with hypoxia J96.01 Pneumonia due to COVID-19 virus U07.1; J12.82 History of acute pancreatitis Z87.19 BPH (benign prostatic hyperplasia) N40.0 Leukopenia D72.819 Thrombocytopenia D69.6 Elevated AST (SGOT) R74.01 Obesity (BMI 30-39.9) E66.9 DVT prophylaxis Z29.9 Hypokalemia E87.6
[2021-01-17] MEDS: ENOXAPARIN 80 MG/0.8 ML SYR SQ SCH ×3 (00:11→20:59)
[2021-01-17] MEDS: FAMOTIDINE 20 MG TAB PO SCH ×3 (00:12→21:01)
[2021-01-17 06:49] LABS: Hematocrit (blood only) 41.7 % (42-52); Hemoglobin 14.3 g/dL (14.0-18.0); Mean Corpuscular Hemoglobin 31.3 pg (25-34); Mean Corpuscular Hgb Conc 34.3 g/dL (32-36); Mean Corpuscular Volume 91.2 fL (80-100); Mean Platelet Volume 9.2 fL (7.4-10.4); Platelet Count 158 K/uL (130-400); RDW Coefficient of Variation 12.5 % (11.5-14.5); RDW Standard Deviation 41.8 fL (36.4-46.3); Red Blood Count 4.57 M/uL (4.7-6.1); White Blood Count 4.88 K/uL (4.8-10.8)
[2021-01-17 07:27] LABS: BUN Creatinine Ratio 22.1 (10-20); Calcium 8.8 mg/dl (8.5-10.1); Creatinine Clr Calc Pharmacy 135.2 ml/min; Est GFR (African American) 111.6 ml/min; Est GFR (Non-African American) 96.3 ml/min; Potassium 3.9 mmol/L (3.5-5.1)
[2021-01-17 07:31] LABS: C Reactive Protein 4.28 mg/dl (0-0.29)
[2021-01-17] MEDS: dexAMETHasone 6 MG in SYRINGE 0 ML IV SCH (08:41)
[2021-01-17] MEDS: ASCORBIC ACID 500 MG TAB PO SCH (08:41)
[2021-01-17] MEDS: CHOLECALCIFEROL 1,000 UNITS 25 MCG TAB PO SCH (08:43)
[2021-01-17] MEDS: ZINC SULFATE 220 MG CAPSULE PO SCH (08:43)
--- NOTE | 2021-01-17 19:42 | Hospitalist Progress Note ---
Date of Service January 17, 2021 Assessment & Plan (1) Acute respiratory failure with hypoxia: Plan: 2nd to #2 below. stable on [place] O2. (2) Pneumonia due to COVID-19 virus: Plan: He is about 11 days into his illness. Day #3 of dexamethasone 6mg IV daily. Remdesivir deferred. Cont proning. Cont flutter. Cont mucinex. Procal noted to be negative. Deferring on abx. Crp improved today. (3) History of acute pancreatitis: Plan: Noted. Lipase neg x 2 while here. This does not rule out pancreatitis but makes it much less likely. If pain recurs then CT a/p. (4) BPH (benign prostatic hyperplasia): Plan: On no meds for such. (5) Leukopenia: Plan: 2nd to #2 resolved (6) Thrombocytopenia: Plan: 2nd to #2 resolved (7) Elevated AST (SGOT): Plan: likely due to COVID infection trend CPK wnl today (8) Obesity (BMI 30-39.9): Plan: BMI 38 (9) Hypokalemia: Plan: replaced & resolved (10) DVT prophylaxis: Plan: lovenox 0.5mg/kg BID Plan: left message for on her voicemail this evening and yesterday evening called pt/'s landline - she did not answer Admission and Anticipated Discharge Date Admission Date: January 15, 2021 Subjective overall feels better than yesterday feels he can take larger breaths coughing but still dry mild NAYLOR only; no dyspnea at rest no recurrent abdominal pain had good bowel movement overnight no diarrhea continues to prone asks if he can take a larger vitamin D supplement Review of Systems Review of Systems: gen - no fevers or chills cv - no chest pain gi - no pain, nausea or emesis Physical Exam Physical Exam: gen - obese, NAD neck - no JVD mouth - MMM heart - RRR, s1 s2, no murmur lungs - b/l rales bases, airation improved today, no wheeze; no increased work of breathing abd - soft NT ND BS+ ext - no edema, pulses 2+ b/l Results & Data Results & Data ([facility]) Vital Signs (Past 12 Hours) Vital Signs Temp Pulse Pulse Resp BP Pulse Ox 01/17/21 19:22 37.1 C 72 17 116/75 95 01/17/21 17:59 70 01/17/21 16:28 37.1 C 69 24 123/80 94 01/17/21 11:54 36.8 C 76 20 137/74 92 01/17/21 11:46 81 01/17/21 08:01 37.0 C 96 H 17 134/86 95 Laboratory Results Laboratory Results - last 24 hr 01/17/21 01/17/21 01/17/21 06:20 06:20 06:20 WBC 4.88 RBC 4.57 L Hgb 14.3 Hct 41.7 L MCV 91.2 MCH 31.3 MCHC 34.3 RDW Std Deviation 41.8 RDW Coeff of Nargis 12.5 Plt Count 158 MPV 9.2 Sodium 138 Potassium 3.9 Chloride 104 Carbon Dioxide 30 Anion Gap 4.0 BUN 18 Creatinine 0.83 Est Cr Clr Drug Dosing 135.2 Est GFR ( Amer) 111.6 Est GFR (Non-Af Amer) 96.3 BUN/Creatinine Ratio 22.1 H Glucose 108 H Calcium 8.8 AST 57 H Total Creatine Kinase 289 C-Reactive Protein 4.28 H Procalcitonin < 0.05 PG Care Time/CCT Total # of Minutes Spent Total Time Spent with Patient: Total time spent is greater than 50% in coordination of care (as documented) at patient's floor/unit and/or counseling patient: Coding Level of Care Code 65433 Subseq Hosp Care Lvl 2 Diagnoses Acute respiratory failure with hypoxia J96.01 Pneumonia due to COVID-19 virus U07.1; J12.82 History of acute pancreatitis Z87.19 BPH (benign prostatic hyperplasia) N40.0 Leukopenia D72.819 Thrombocytopenia D69.6 Elevated AST (SGOT) R74.01 Obesity (BMI 30-39.9) E66.9 Hypokalemia E87.6 DVT prophylaxis Z29.9
[2021-01-18 06:45] LABS: BUN Creatinine Ratio 27.6 (10-20); Calcium 8.7 mg/dl (8.5-10.1); Creatinine Clr Calc Pharmacy 144.5 ml/min; Est GFR (African American) 114.5 ml/min; Est GFR (Non-African American) 98.8 ml/min
[2021-01-18] MEDS: dexAMETHasone 6 MG in SYRINGE 0 ML IV SCH (08:27)
[2021-01-18] MEDS: CHOLECALCIFEROL 1,000 UNITS 25 MCG TAB PO SCH (08:28)
[2021-01-18] MEDS: FAMOTIDINE 20 MG TAB PO SCH ×2 (08:28→19:50)
[2021-01-18] MEDS: ZINC SULFATE 220 MG CAPSULE PO SCH (08:29)
[2021-01-18] MEDS: ASCORBIC ACID 500 MG TAB PO SCH (08:29)
[2021-01-18] MEDS: ENOXAPARIN 80 MG/0.8 ML SYR SQ SCH (08:30)
[2021-01-18] MEDS ORDERED: HYDROcodone/HOMATROPINE SYRUP 5MG/1.5MG 5ML UDP PO PRN (16:52)
[2021-01-18] MEDS ORDERED: FUROSEMIDE 20 MG TAB PO ONE (17:45)
[2021-01-18] MEDS ORDERED: POTASSIUM CHLORIDE CRTAB 20 MEQ TABCR PO STA (17:45)
--- NOTE | 2021-01-18 19:34 | Hospitalist Progress Note ---
Date of Service January 18, 2021 Assessment & Plan (1) Acute respiratory failure with hypoxia: Plan: 2nd to #2 below. stable on [place] O2. (2) Pneumonia due to COVID-19 virus: Plan: He is about 12 days into his illness. Day #4 of dexamethasone 6mg IV daily. Remdesivir deferred. Cont proning. Cont flutter. Cont mucinex. Procal noted to be negative. Deferring on abx. To keep neg fluid balance - lasix 20mg po x 1, repeat labs am. Cont supportive care. (3) History of acute pancreatitis: Plan: Noted. Lipase neg x 2 while here. He had abd pain on day of presentation but has not recurred. Likely did not have pancreatitis. Perhaps he had gastritis from COVID at time of presentation. (4) BPH (benign prostatic hyperplasia): Plan: On no meds for such. Voiding fine. (5) Leukopenia: Plan: 2nd to #2 resolved (6) Thrombocytopenia: Plan: 2nd to #2 resolved (7) Elevated AST (SGOT): Plan: likely due to COVID infection trend CPK wnl (8) Obesity (BMI 30-39.9): Plan: BMI 38 (9) Hypokalemia: Plan: replaced & resolved (10) DVT prophylaxis: Plan: lovenox 40mg BID Plan: finally connected with pt's by phone today gave update, questions answered Admission and Anticipated Discharge Date Admission Date: January 15, 2021 Subjective "I'm feeling better" can take deeper breaths still coughing - no sputum eating is robust no diarrhea no nausea no pleuritic chest pain or tightness he continues to prone no new complaints tele overnight Review of Systems Review of Systems: gen - no fevers/chills CV - no cp pulm - dyspnea on exertion present GI - no vomiting Physical Exam Physical Exam: gen - obese, NAD, looks better today neck - no JVD mouth - MMM heart - RRR, s1 s2, no murmur lungs - b/l rales bases - about 1/2 way up back; no wheeze; airation improving abd - soft NT ND BS+ ext - no edema, pulses 2+ b/l psych - a/o x 3 Results & Data Results & Data ([facility]) Vital Signs (Past 12 Hours) Vital Signs Temp Pulse Pulse Resp BP Pulse Ox 01/18/21 16:36 36.8 C 59 L 18 135/79 93 01/18/21 16:00 59 L 01/18/21 11:14 36.8 C 66 16 130/80 97 01/18/21 08:00 36.7 C 70 18 127/74 92 01/18/21 07:54 50 L Laboratory Results Laboratory Results - last 24 hr 01/18/21 01/18/21 05:26 05:26 Sodium 139 Potassium 4.0 Chloride 106 Carbon Dioxide 29 Anion Gap 4.0 BUN 22 H Creatinine 0.78 Est Cr Clr Drug Dosing 144.5 Est GFR ( Amer) 114.5 Est GFR (Non-Af Amer) 98.8 BUN/Creatinine Ratio 27.6 H Glucose 116 H Calcium 8.7 AST 52 H 25-OH Vitamin D Total 54.8 PG Care Time/CCT Total # of Minutes Spent Total Time Spent with Patient: Total time spent is greater than 50% in coordination of care (as documented) at patient's floor/unit and/or counseling patient: Coding Level of Care Code 63962 Subseq Hosp Care Lvl 2 Diagnoses Acute respiratory failure with hypoxia J96.01 Pneumonia due to COVID-19 virus U07.1; J12.82 History of acute pancreatitis Z87.19 BPH (benign prostatic hyperplasia) N40.0 Leukopenia D72.819 Thrombocytopenia D69.6 Elevated AST (SGOT) R74.01 Obesity (BMI 30-39.9) E66.9 Hypokalemia E87.6 DVT prophylaxis Z29.9
[2021-01-18] MEDS: guaiFENesin 600 MG TABCR PO SCH (19:49)
[2021-01-18] MEDS: ENOXAPARIN INJ 40 MG/0.4 ML SYR SQ SCH (19:50)
[2021-01-18] MEDS ORDERED: ENOXAPARIN 80 MG/0.8 ML SYR SQ SCH (21:00)
[2021-01-19] MEDS: dexAMETHasone 6 MG in SYRINGE 0 ML IV SCH (08:11)
[2021-01-19] MEDS: CHOLECALCIFEROL 1,000 UNITS 25 MCG TAB PO SCH (08:12)
[2021-01-19] MEDS: guaiFENesin 600 MG TABCR PO SCH ×2 (08:12→20:33)
[2021-01-19] MEDS: ZINC SULFATE 220 MG CAPSULE PO SCH (08:12)
[2021-01-19] MEDS: ASCORBIC ACID 500 MG TAB PO SCH (08:12)
[2021-01-19] MEDS: ENOXAPARIN INJ 40 MG/0.4 ML SYR SQ SCH ×2 (08:13→20:32)
[2021-01-19] MEDS: FAMOTIDINE 20 MG TAB PO SCH ×2 (08:13→20:33)
[2021-01-19 09:25] LABS: BUN Creatinine Ratio 27.2 (10-20); Calcium 8.8 mg/dl (8.5-10.1); Creatinine Clr Calc Pharmacy 129.9 ml/min; Est GFR (African American) 112.7 ml/min; Est GFR (Non-African American) 97.3 ml/min; Magnesium 2.3 mg/dl (1.8-2.4); Potassium 3.9 mmol/L (3.5-5.1)
[2021-01-19] MEDS ORDERED: FUROSEMIDE 20 MG TAB PO ONE (10:49)
[2021-01-19] MEDS ORDERED: POTASSIUM CHLORIDE CRTAB 20 MEQ TABCR PO STA (10:49)
[2021-01-19] MEDS: POLYETHYLENE (MIRALAX) 17 GM PACK PO SCH (15:49)
[2021-01-19] MEDS: SENNA 8.6 MG TAB PO SCH (15:50)
[2021-01-19] MEDS ORDERED: MELATONIN 3 MG TAB PO PRN (21:41)
--- NOTE | 2021-01-19 23:18 | Hospitalist Progress Note ---
Date of Service January 19, 2021 Assessment & Plan (1) Acute respiratory failure with hypoxia: Plan: 2nd to #2 below. stable on [place] O2. wean as tolerated. overall he is improving. (2) Pneumonia due to COVID-19 virus: Plan: He is about 13 days into his illness. Day #5 of dexamethasone 6mg IV daily. Remdesivir deferred at admission. Cont proning. Cont flutter. Cont mucinex. Procal noted to be negative. abx deferred. To keep neg fluid balance - will give another dose of lasix 20mg po x 1 today. BMP stable this am following po lasix yesterday. Cont supportive care. Wean O2. (3) History of acute pancreatitis: Plan: Noted. Lipase neg x 2 while here. He had abd pain on day of presentation but has not recurred. Likely did not have pancreatitis. Perhaps he had gastritis from COVID at time of presentation. Cont H2 rudy. (4) BPH (benign prostatic hyperplasia): Plan: On no meds for such. Voiding fine. (5) Leukopenia: Plan: 2nd to #2 resolved (6) Thrombocytopenia: Plan: 2nd to #2 resolved (7) Elevated AST (SGOT): Plan: likely due to COVID infection trend CPK wnl (8) Obesity (BMI 30-39.9): Plan: BMI 38 (9) Hypokalemia: Plan: replaced & resolved (10) DVT prophylaxis: Plan: lovenox 40mg BID Plan: updated by phone again today hopefully home sometime this weekend will need 2-step CRP was moderately high early in stay - ~7 consider xarelto DVT prophylaxis at discharge x 30 days Admission and Anticipated Discharge Date Admission Date: January 15, 2021 Subjective has episodes of fatigue and wanting to nap but overall doing much better in comparison to at home coughing but no sputum no dyspnea at rest no abd pain, nausea or emesis is trying to prone and perform pulmonary toilet tele overnight wnl Review of Systems Review of Systems: gen - no fevers or chills; fatigue; appetite better CV - no orthopnea pulm - no sputum; mild NAYLOR present GI - no N/V/D musculo - no myalgias Physical Exam Physical Exam: gen - obese, NAD, again looks better today neck - no JVD mouth - MMM heart - RRR, s1 s2, no murmur lungs - b/l rales bases - these are improved but some remain; no wheeze; no increased work of breathing abd - soft NT ND BS+ ext - no edema, pulses 2+ b/l psych - a/o x 3 Results & Data Results & Data ([facility]) Vital Signs (Past 12 Hours) Vital Signs Temp Pulse Pulse Resp BP BP Pulse Ox 01/19/21 19:00 36.3 C L 56 L 18 133/75 96 01/19/21 16:00 59 L 01/19/21 15:51 36.5 C 55 L 18 129/84 95 01/19/21 11:54 36.8 C 66 20 114/71 94 Laboratory Results Laboratory Results - last 24 hr 01/19/21 08:32 Sodium 141 Potassium 3.9 Chloride 106 Carbon Dioxide 29 Anion Gap 5.0 BUN 22 H Creatinine 0.81 Est Cr Clr Drug Dosing 129.9 Est GFR ( Amer) 112.7 Est GFR (Non-Af Amer) 97.3 BUN/Creatinine Ratio 27.2 H Glucose 91 Calcium 8.8 Magnesium 2.3 PG Care Time/CCT Total # of Minutes Spent Total Time Spent with Patient: Total time spent is greater than 50% in coordination of care (as documented) at patient's floor/unit and/or counseling patient: Coding Level of Care Code 74858 Subseq Hosp Care Lvl 2 Diagnoses Acute respiratory failure with hypoxia J96.01 Pneumonia due to COVID-19 virus U07.1; J12.82 History of acute pancreatitis Z87.19 BPH (benign prostatic hyperplasia) N40.0 Leukopenia D72.819 Thrombocytopenia D69.6 Elevated AST (SGOT) R74.01 Obesity (BMI 30-39.9) E66.9 Hypokalemia E87.6 DVT prophylaxis Z29.9
[2021-01-20] MEDS: POLYETHYLENE (MIRALAX) 17 GM PACK PO SCH (08:26)
[2021-01-20] MEDS: SENNA 8.6 MG TAB PO SCH (08:26)
[2021-01-20] MEDS: FAMOTIDINE 20 MG TAB PO SCH (08:27)
[2021-01-20] MEDS: guaiFENesin 600 MG TABCR PO SCH (08:27)
[2021-01-20] MEDS: ENOXAPARIN INJ 40 MG/0.4 ML SYR SQ SCH (08:27)
[2021-01-20] MEDS: dexAMETHasone 6 MG in SYRINGE 0 ML IV SCH (08:27)
[2021-01-20] MEDS: ZINC SULFATE 220 MG CAPSULE PO SCH (08:27)
[2021-01-20] MEDS: CHOLECALCIFEROL 1,000 UNITS 25 MCG TAB PO SCH (08:28)
[2021-01-20] MEDS: ASCORBIC ACID 500 MG TAB PO SCH (08:28)
[2021-01-20 10:23] LABS: Hematocrit (blood only) 44.1 % (42-52); Mean Corpuscular Volume 91.1 fL (80-100); Mean Platelet Volume 9.5 fL (7.4-10.4); Platelet Count 223 K/uL (130-400); RDW Coefficient of Variation 12.1 % (11.5-14.5); RDW Standard Deviation 40.7 fL (36.4-46.3); Red Blood Count 4.84 M/uL (4.7-6.1); White Blood Count 5.34 K/uL (4.8-10.8)
[2021-01-20 10:51] LABS: BUN Creatinine Ratio 23.4 (10-20); Calcium 8.9 mg/dl (8.5-10.1); Creatinine Clr Calc Pharmacy 119.5 ml/min; Potassium 3.7 mmol/L (3.5-5.1)
--- NOTE | 2021-01-20 14:20 | Discharge Summary ---
Date of Service January 20, 2021 Admission HPI Per Admitting Provider This patient is a 60-year male with history of BPH and chronic prostatitis now s/p TURP, necrotizing pancreatitis, and a former smoker, who presents to the ER with 8 days of cough, stuffy nose, fatigue, weakness, body aches, and fever/chills and shortness of breath. He also complains of a loss of taste and smell and chest tightness. No nausea/vomiting or diarrhea. He does feel some epigastric abdominal pain that is typical for him when he has a mild flareup of his pancreatitis. His is sick with similar symptoms. He is not vaccinated for Covid. In the ER, he was found to be Covid-19+, flu A/B-, with leukopenia and lymphopenia on CBC, mild hypokalemia and hyponatremia, mild elevation of AST, negative troponin. His chest x-ray showed a multifocal airspace consolidation typical for bilateral pneumonia with trace pleural effusions. He was noted to be hypoxic and was placed on 4 L nasal cannula, he also had a fever in the ER. He will be admitted for Covid-19 with pneumonia and acute respiratory failure with hypoxia. Admission Exam Per Admitting Provider Constitutional: WD/WN, vitals as above Eyes: PERRL, conjunctivae normal, anicteric sclerae ENMT: external ear and nose normal, oropharynx normal Neck: trachea midline, no thyromegaly Respiratory: normal respiratory effort and + cough Auscultation: + crackles (lower lung doyle bilat); no rhonchi and no wheezes Cardiovascular: RRR, no murmur, no edema Chest (Breasts): Chest: normal inspection of chest Gastrointestinal (Abdomen): normal bowel sounds, soft, nontender, no hepatosplenomegaly Musculoskeletal: Extremities: extremities normal to inspection; no cyanosis and no clubbing Skin: no rashes, warm and dry Neurologic: moves all extremities and awake; no focal motor deficits Psychiatric: A+Ox3, euthymic affect Lymphatic: no lymphedema Principal Diagnosis COVID-19 positive test (U07.1, COVID-19) with Acute Pneumonia (J12.89, Other viral pneumonia) Discharge Exam General: A&Ox3. NAD. Cooperative. HEENT: Atraumatic, normocephalic. Pulm: Bibasilar crackles otherwise CTAB A&P. -wheezes, -rales, -rhonchi. Symmetrical chest rise. No increase work of breathing. No respiratory distress. Cardiac: RRR, -mrg. Radial pulses intact and symmetrical. Abdominal: Nontender, nondistended, soft. BS present. Discharge Data Allergies Allergy/AdvReac Type Severity Reaction Status Date / Time No Known Allergies Allergy Verified 01/15/21 16:50 Consultations 01/15/21 17:08 ED Decision to Admit Stat Hospital Course (1) Acute respiratory failure with hypoxia: Vick is a 60-year-old male who presented with hypoxia and who was treated for acute respiratory failure with hypoxia due to COVID-19 pneumonia. To do as outpatient: 1. Complete dexamethasone 10-day course 2. Follow-up with primary care as outpatient, continued reassessment of oxygen needs 3. Continue to use portable oxygen with residual requirement at discharge, reassessment as above 4. Complete 30 days of rivaroxaban 10 mg daily treatment for DVT protection due to high CRP and risk with Covid infection 5. Follow-up CMP in approximately 1 week to follow mild AST elevation Acute hypoxic respiratory failure 2/2 COVID-19 pneumonia 2nd to #2 below. stable on [place] O2. overall he is improving. (2) Pneumonia due to COVID-19 virus: Approximately 2 weeks into illness at time of discharge. Received IV dexamethasone, discharged to complete 10-day total course of Dex as outpatient Remdesivir deferred at admission. During admission continued proning, flutter valve, Mucinex Procal noted to be negative. abx deferred. Continue elevated inflammatory markers (CRP greater than 7 on admission, down trended but remain greater than 3) and concern for clot risk discussed for/benefits of low-dose anticoagulation. Discharged on rivaroxaban 10 mg daily for 1 month. (3) History of acute pancreatitis: Noted. Lipase neg x 2 while here. He had abd pain on day of presentation but has not recurred. Likely did not have pancreatitis. Perhaps he had gastritis from COVID at time of presentation. May continue H2 rudy as needed, symptoms improved (4) BPH (benign prostatic hyperplasia): On no meds for such. Voiding fine. (5) Leukopenia: 2nd to #2 resolved (6) Thrombocytopenia: 2nd to #2 resolved (7) Elevated AST (SGOT): likely due to COVID infection trend, recommend follow-up CMP in approximately 1 week (8) Obesity (BMI 30-39.9): BMI 38 (9) Hypokalemia: replaced & resolved (10) DVT prophylaxis: lovenox 40mg BID converted to rivaroxaban on discharge Total Time Total Time Spent Total Time Spent (In Minutes): Time spent day of discharge 40 minutes including direct patient care, documentation, review of labs and images, and coordination of care. Discharge Plan Discharge Items Patient Disposition: Home - Self-Care Reason For Visit: COVID-19 PNA, HYPOXIA Discharge Diagnosis: COVID-19 pneumonia, hypoxia Condition on Discharge: Fair Activity: Per Instructions section Non-emergency contact: Primary Care Provider Call non-emergency contact if: you have any medication questions, your symptoms worsen, your pain is not controlled and you have a fever Follow-up/Referrals: Kate Kimball MD [Physician] - (PLEASE CALL TO SCHEDULE A DISCHARGE FOLLOW-UP APPOINTMENT WITHIN 10 DAYS. ) Diet: Regular Addtl Attending Provider Instructions: You were seen in the hospital for acute Covid pneumonia. You are noted to have a residual oxygen requirement, but otherwise clinically improved. You were discharged with home oxygen. You are discharged on a steroid medication as noted below. You had a residual oxygen requirement at time of discharge. Some patients have a low-grade oxygen requirement for several days to weeks while they recover from Covid. Please use oxygen 2-4 L continuously or with exertion as needed to maintain an oxygen level greater than 90%. Please followup at your primary care appointment below for additional recommendations. You have been discharged on a steroid medication, dexamethasone. Please take Dexamethasone 6mg by mouth daily for 5 additional days to complete 10 days of treatment. Covid has been associated with an increased risk of forming blood clots in the legs and lungs. Your inflammatory markers were elevated which may put you at increased risk for this. A low dose of a blood thinner, rivaroxaban, has been prescribed for 30 days to help protect you from blood clots. Please take rivaroxaban 10 mg once daily by mouth. While on any blood thinner there is a risk of bleeding/hemorrhage. If you sustain a small cut please apply firm direct pressure for 10 minutes before checking. If you sustain a cut that does not stop bleeding, or moderate or larger cut please call 911 to be evaluated in the emergency department. A followup appointment is being scheduled for you with [facility] Internal Medicine, Dr. Kimball. You should be seen seen within 1-2 weeks. You should receive a call to confirm this appointment. If you do not receive a call within 48 hours to confirm this appointment, or need to change this appointment, please call the provider's office at [phone]. Please have a repeat CMP/CBC (blood work) ordered at this appointment to followup on your hospital labs. If you develop any new or worsening symptoms including fever, chills, sweats, chest pain, chest pressure, difficulty breathing, uncontrolled nausea/vomiting, rash, wheezing, passing out or nearly passing out, bleeding, black/bloody bowel movements, or other new or concerning symptoms please call your primary care physician at [phone], or call 911 for re-evaluation in the emergency department if you are very concerned. Pending Studies at Discharge: No Stand-Alone Forms: My [employer], Smoking Cessation Medications and DC Order Prescriptions: New dexamethasone 6 mg tablet 6 mg PO DAILY Qty: 5 RF: 0 Xarelto 10 mg tablet 10 mg PO DAILY Qty: 30 RF: 0 Continued zinc 50 mg Tablet 50 mg PO QAM RF: 0 acetaminophen 500 mg Capsule 1,000 mg PO Q6H PRN (Reason: Pain) RF: 0 cholecalciferol (vitamin D3) [Vitamin D3] 25 mcg (1,000 unit) Tablet 25 mcg PO QAM RF: 0 ascorbic acid (vitamin C) [Vitamin C] 125 mg Tablet,Chewable 125 mg PO QAM RF: 0 Discharge Orders: Discharge Order (Routine); Ordered 01/20/21 Ordered By: Amrik Escobar/Other Patient Handouts: Proning COVID-19, 5 Steps for Eating Healthier Admission Data Admit Date/Time: 01/15/21 18:49 Attending Provider: Amrik Arenas Admit Provider: Sarita Morin Primary Care Provider: PCP,NO Other Providers: Sarita Morin Coding Level of Care Code D/C DAY MANAGEMENT >30 MINS Diagnoses Acute respiratory failure with hypoxia J96.01 Pneumonia due to COVID-19 virus U07.1; J12.82 History of acute pancreatitis Z87.19 BPH (benign prostatic hyperplasia) N40.0 Leukopenia D72.819 Thrombocytopenia D69.6 Elevated AST (SGOT) R74.01 Obesity (BMI 30-39.9) E66.9 Hypokalemia E87.6 DVT prophylaxis Z29.9
== END 2021-01-20 16:15 | disposition home or self-care (01) | DRG 177 ==
LOC: ED 12:56 → EDINP 18:49 → SUATTDRO 18:49 → 2E 01-16 19:58 → 2N 01-18 22:32 → 2W 01-20 01:35

== ENCOUNTER 2022-07-10 10:00 | Observation (INO) ==
--- NOTE | 2022-07-02 09:45 | PAT Medication Instructions ---
Medication Instructions Date of Service July 02, 2022 Home Medications acetaminophen 500 mg capsule 1,000 mg PO Q6H PRN Pain ascorbic acid (vitamin C) 125 mg chewable tablet (Vitamin C) 125 mg PO QAM cholecalciferol (vitamin D3) 25 mcg (1,000 unit) tablet (Vitamin D3) 25 mcg PO QAM zinc 50 mg tablet 50 mg PO QAM aspirin 81 mg tablet 81 mg PO QAM DO NOT take the morning of surgery ascorbic acid (vitamin C) 125 mg chewable tablet (Vitamin C) 125 mg PO QAM cholecalciferol (vitamin D3) 25 mcg (1,000 unit) tablet (Vitamin D3) 25 mcg PO QAM zinc 50 mg tablet 50 mg PO QAM Take morning of surgery With a small sip of water, OTHERWISE NOTHING TO EAT OR DRINK AFTER MIDNIGHT: acetaminophen 500 mg capsule 1,000 mg PO Q6H PRN Pain (if needed) aspirin 81 mg tablet 81 mg PO QAM (unless surgeon directed otherwise) Take evening before surgery acetaminophen 500 mg capsule 1,000 mg PO Q6H PRN Pain (if needed) Other Notes If you have any questions please call us at [phone] or [phone] or [phone] or [phone]
--- NOTE | 2022-07-04 10:22 | Anesthesiology Consultation ---
Date of Service July 04, 2022 Assessment & Plan (1) Encounter for pre-operative examination: Plan - Pt was advised to trim/shave facial hair. - Outpatient joint assessment: Patient is currently scheduled for inpatient pathway. If re-evaluated pending system levels during current pandemic/surgeon requests outpatient pathway, patient is not recommended candidate for outpatient joint program from anesthesia standpoint. Chart Review Chart Review: Acceptable Risk for Surgery and Patient seen in Pre Admission Testing Teaching & Discussion Pre-Anesthesia Teaching/Discussion Notes: Instructed NPO after midnight before surgery, except medications with 15 cc of water. Medication instructions provided according to the PAT guidelines. History Surgery Operation Date: 07/10/22 10:35 Proposed Procedures p Right Total Knee Arthroplasty - Dougie Engle MD Height/Weight Height: 6 ft 1 in Weight: 130.635 kg Allergies Allergy/AdvReac Type Severity Reaction Status Date / Time No Known Allergies Allergy Verified 07/02/22 08:22 Medications Home Medications Medication Instructions Recorded Confirmed Last Taken acetaminophen 500 mg capsule 1,000 mg PO Q6H PRN Pain 01/15/21 07/02/22 01/15/21 ascorbic acid (vitamin C) 125 mg 125 mg PO QAM 01/15/21 07/02/22 01/15/21 chewable tablet (Vitamin C) cholecalciferol (vitamin D3) 25 25 mcg PO QAM 01/15/21 07/02/22 01/15/21 mcg (1,000 unit) tablet (Vitamin D3) zinc 50 mg tablet 50 mg PO QAM 01/15/21 07/02/22 01/15/21 aspirin 81 mg tablet 81 mg PO QAM 07/02/22 07/02/22 Unknown Past Medical History Medical History (Updated 07/04/22 @ 10:26 by Sondra Mcginnis PA-C) Chronic prostatitis GERD (gastroesophageal reflux disease) rare, stable per pt Hearing loss in left ear History of acute pancreatitis 4 YR AGO History of bladder stone History of COVID-19 12/2020- covid pneumonia, hospitalized; no current issues History of urinary retention Sleep-disordered breathing snoring and witnessed apneas, no previous sleep study Patient denies h/o stroke, seizures, heart attack, heart failure, DM, HTN, blood clots or blood transfusions. Exercise / Class Metabolic Activity II 4-5 Yardwork/Stairs/Walk up hill (denies chest discomfort or shortness of breath with 1 FOS) Past Family History Family History Mother Family history of skin cancer Other No family history of adverse response to anesthesia Past Surgical History Surgical History History of biliary duct stent placement History of colonoscopy History of cystoscopy for stone removal History of ERCP numerous for exam and stent exchange - no longer has stent Past Anesthesia History No Hx of Anesthesia Complications and No Family Hx of Anesthesia Complications History of PONV No Hx of PONV and No Hx of Motion Sickness Social History Smoking Status: Former smoker tobacco type: cigarettes Smoking cigarettes per day: quit smoking 20 yrs ago Do You Dip or Chew Tobacco: Yes (chews non tobacco "tea"- advised) Hx Alcohol Use: No Hx Substance Use: No substance use type: does not use Review of Systems Palpitations, very rare-once a year-ongoing x yrs without change or worsening- denies associated chest discomfort, shortness of breath or dizziness. Patient denies chest pain, shortness of breath, dyspnea on exertion, fever, chills, cough, or wheezing. Physical Exam Vital Signs Vitals BP 151/83 P 71 TEMP 98.2 SP02 96% on RA RESP 17 Physical Facial hair Full cervical extension range of motion without pain TMD 3.5 finger breadths Mallampati Score 2 Dentition: intact, denies chipped or loose teeth, caps/crowns, implants or bridges Lungs: normal respiratory effort. Good air movement, clear throughout to auscultation, no adventitious breath sounds Cardiac: regular rate and rhythm, no murmurs noted Carotid arteries: negative bruit bilat Lab Results Anesthesia Preop Results Results Anesthesia Widget: WBC 4.55 K/ul (4.8-10.8) L 07/04/22 Hgb 16.0 g/dl (14.0-18.0) 07/04/22 Hct 46.8 % (42.0-52.0) 07/04/22 Plt 220 K/uL (130-400) 07/04/22 Na 139 mmol/L (136-145) 07/04/22 K 4.1 mmol/L (3.5-5.1) 07/04/22 Cl 106 mmol/L (98-107) 07/04/22 CO2 28 mmol/L (21-32) 07/04/22 BUN 19 mg/dl (6-23) 07/04/22 Creat 0.87 mg/dl (0.6-1.4) 07/04/22 Glucose Level 92 mg/dl (70-99(Fasting)) 07/04/22 PT 11.0 Seconds (9.0-12.0) 07/04/22 PTT 27.2 Seconds (21.0-31.0) 07/04/22 INR 1.0 (0.9-1.1) 07/04/22 Blood Type A Positive 07/04/22 Antibody Screen NEGATIVE 07/04/22 Testing Electrocardiogram Date: 07/04/22 NSR, rate 64 bpm Chest X-Ray Date: 07/04/22 Mild asymmetric left hilar prominence. The cardiac silhouette is normal in size. No pneumothorax, pleural effusion, airspace consolidation or overt pulmonary edema. Bones appear grossly intact. IMPRESSION: No acute process. COVID-19 Risk Screen Screening Information COVID-19 Screen Date: 07/04/22 Exposure 21 Days Family/Household +COVID Last 21 Days: No Exposure 10 Days Any COVID Exposure Last 10 Days: No Symptoms Last 10 Days Experienced COVID Sx Last 10 Days: No + COVID 0-90 Days COVID + in Last 0-90 Days: No
[~2022-07-10 10:00] MED LIST changes: +ACETAMINOPHEN 500 MG TAB PO SCH; +BUPIVACAINE 0.25% PF 30 ML VIAL ONE; +BUPIVACAINE 0.5 % 5 MG/1 ML PF 10ML VIAL ONE; +BUPIVACAINE LIPOSOME/PF 266 MG, BUPIVACAINE/EPINEPHRINE 50 ML, SODIUM CHLORIDE 0.9% PF ... INFIL SCH; +CeleBREX 200 MG CAP PO SCH; +DEXAMETHASONE SOD INJ 4 MG/ML VIAL ONE; +EPINEPHrine INJ 1 MG/ML AMP ONE; +FAMOTIDINE 20 MG TAB PO SCH; -LR 15ML/HR IV SCH; +LR 500ML BOLUS, THEN 15ML/HR IV SCH; +LR 60ML/HR IV SCH; +METOCLOPRAMIDE HCL 10 MG TABLET PO SCH; +Scopolamine 1 MG TDSY TD SCH; +TRANEXAMIC ACID 1,000 MG **IV Intra-op IV SCH; +dexAMETHasone**PF** 10 MG/ML VIAL IV SCH
--- NOTE | 2022-07-10 11:03 | History & Physical Bridge Note ---
Date of Service July 10, 2022 History & Physical Bridge Note I have examined the patient, reviewed the History & Physical and in the interval since the performance of the History & Physical I have noted the following changes of clinical significance: no changes noted
[2022-07-10] MEDS ORDERED: PROPOFOL IV EMULSION 10 MG/ML 20 ML VIAL IV ONE ×5 (11:29→14:16)
[2022-07-10] MEDS ORDERED: fentaNYL citrate PF 100 MCG/2 ML VIAL ONE (11:29)
[2022-07-10] MEDS ORDERED: MIDAZOLAM HCL 1 MG/ML 2ML VIAL ONE ×2 (11:29→13:23)
[2022-07-10] MEDS ORDERED: ATROPINE SULFATE 0.1 MG/ML 10ML SYR IV PRN (11:34)
[2022-07-10] MEDS ORDERED: fentaNYL citrate PF 100 MCG/2 ML VIAL IV PRN (11:34)
[2022-07-10] MEDS ORDERED: ONDANSETRON INJ 2 MG/ML 2 ML VIAL IV PRN ×2 (11:34→16:00)
[2022-07-10] MEDS ORDERED: ePHEDrine sulfate 50 MG/ML AMP IV PRN (11:34)
[2022-07-10] MEDS ORDERED: BUPIVACAINE/EPINEPHRINE 0.25% 1:200,000 30 ML VIAL ONE (14:02)
[2022-07-10] MEDS ORDERED: SODIUM CHLORIDE 0.9% PF 50 ML VIAL ONE (14:02)
[2022-07-10] MEDS ORDERED: BUPIVACAINE LIPOSOME 1.3% 266 MG/20 ML VIAL ONE (14:03)
--- NOTE | 2022-07-10 15:07 | Operative Report ---
PG Post Operative Report Pre & Post Diagnosis Operation Date: 07/10/22 12:00 Pre-Op Diagnosis: Right Knee Advanced Degenerative Joint Disease Post-Op Diagnosis: Right Knee Advanced Degenerative Joint Disease I identified the patient and participated in the time-out.: Yes Procedure Operation Date: 07/10/22 12:00 Actual Procedures p Right Total Knee Arthroplasty(Right) - Dougie Engle MD Surgeon Dougie Engle MD Pipe Smoking Machine Offbearer All Smyth PA-C Estimated Blood Loss 50 Findings Consistent with Post-Op Diagnosis Operative findings showed advanced right knee arthritis with grade 4 [id number] disease of the medial and patellofemoral compartments. The lateral compartment was fairly well spared. He had a fixed varus deformity to his knee. Moderate to large knee joint effusion. Specimens Right knee sent for pathology Anesthesia Type Spinal MAC Complications none Disposition Accompanied Patient To Recovery: No Indications Patient is 62-year-old gentleman said a several year history of increasing right knee pain discomfort describes gotten worse over time. Been through conservative care which became less successful over time. X-rays show advanced medial compartment arthritis. He elected to total knee arthroplasty. Description of Procedure Operative implants consist of: 1 Biomet Vanguard size 72.5 right posterior stabilized femoral component. 2. Biomet size 75 tibial tray. 3. 10 mm posterior stabilized polyethylene insert. 4. 31 x 8 all poly patella. The patient was taken to the operating room, identified, and placed on the operating table supine position protectors were properly padded. IV antibiotics tried by anesthesia team. A spinal anesthetic and abductor canal block had provided in the holding area. Gill cath was placed in sterile fashion. A right thigh tourniquet was then placed. The right lower extremity was then prepped and draped in usual sterile fashion. The right leg was elevated exsanguinated with use of an Esmarch and the tourniquet was placed at 300 mmHg. An anterior process of the right knee was then performed to longitudinal incision centered over the patella. Sharp dissection Through subcutaneous tissue down to the extensor mechanism. Medial parapatellar arthrotomy incision was made. Some subperiosteal dissection was carried out medially. Fat pad was resected from Neath patella tendon. Lateral patellofemoral ligament was released. Patella subluxated laterally and the knee was flexed. The osteophytes taken on distal femur. The ACL PCL were then released from distal femur the tibia subluxated anteriorly. The external tibial alignment jig was then placed in the interface the tibia and adjusted 14 mm medially. Proximal tibial cut was made remove about 3 to 4 mm of bone from the medial side. The tibia sized to a size 75. Attention drawn to the femur. The distal femur with a sharp drop with intramedullary canal was suction. A right 6 degree valgus cutting guide was placed. This femoral cutting block was pinned in place. Distal femoral cut was made to take an additional 3 mm of bone off distal femur. The femur was then sized to a size 72.5. The AP cutting block was pinned parallel to the epicondylar axis which was 3 degrees of external rotation. Anterior cut, anterior chamfer, posterior cut, posterior chamfer cuts were made. The box cutting guide was placed in just slight lateral box cut was made. The knee was flexed. The remnants of the medial lateral menisci were excised. The osteophytes taken off the posterior aspect the femur. Trial femoral component was placed. The tibial tray was pinned in maximum external rotation and the drill and stem punch were used to create defect in proximal tibia. The tibial tray. The knee was then trialed and 10 mm insert fit most properly. Attention drawn the patella. The patella is cleaned of all soft tissues. Patella thickness measured 21 mm in thickness was cut down to 13. It was sized to a size 31 patella. The lug holes were drilled for 31 patella. The lateral osteophytes removed. Patella button was placed. Knee was taken through range of motion patella tracked nicely with no thumbs test. Attention drawn to placing permanent components. Nupathe all trial components were removed. Bone plug was placed in the distal femur limit blood loss. Double batch Palacos G cement was mixed. Biomet Vanguard size 72.5 right posterior stabilized femoral component, size 75 tibial tray, a 10 mm post stabilized polyethylene insert, and a 31 x 8 all Paller patella then cemented in place. Knee was brought out into full extension till cement hardened. Final cement check was then performed. Pericapsular tissues were injected with total of 100 cc of combination of 20 cc Exparel, 30 cc normal saline, 50 cc of quarter percent Marcaine with epinephrine. Patient did receive 1 g of tranexamic acid per the chart was then let down for final tourniquet time 54 minutes. Hemostasis reduced electrocautery. The extensor mechanism was then closed with combination 1 PDS suture #1 Vicryl suture in [id number] fashion but extension excellent check found be intact the subcutaneous tissues then closed w ith 2 Dexon suture in buried interrupted fashion skin was closed skin devonte. Leg was then cleaned and dried and sterile dressed with Xeroform, 4 fours, sterile cast padding, Too bandage were applied. Patient then transferred to the recovery room in stable condition. Patient tolerated procedure well and there were no complications. All Smyth, my physician social human services assistants, was present for the entire procedure. His assistance was essential and required for appropriate patient positioning, prepping and draping, surgical exposure, performing the technical details of the operation, placement the implants, closure of the wound, and placement of the sterile bandage. I attest to the content of the Intraoperative Record and any orders documented therein. Any exceptions are noted below.
--- NOTE | 2022-07-10 15:37 | Anesthesiology Progress Note ---
Date of Service July 10, 2022 Anesthesia Post Procedure Vital Signs Vital Signs: Temp Pulse Pulse Resp BP Pulse Ox O2 Del Method 07/10/22 15:30 81 20 149/84 H 94 Room Air 07/10/22 15:20 83 16 148/78 H 94 Room Air 07/10/22 15:10 81 16 130/73 94 Room Air 07/10/22 15:03 36.0 C L 89 17 137/68 95 Room Air 07/10/22 10:25 36.6 C 69 20 146/85 H 96 Room Air Transfer of Care Handoff Completed per policy Notes Mental Status: alert / awake / arousable Patient Amnestic to Procedure: Yes Nausea / Vomiting: adequately controlled Pain: adequately controlled Airway Patency, RR, SpO2: stable & adequate BP & HR: stable & adequate Hydration State: stable & adequate Neuraxial Anesthesia: was administered and sensory block is resolving Anesthetic Complications: no major complications apparent
--- NOTE | 2022-07-10 15:47 | XRay Report ---
RIGHT KNEE 2 VIEWS History: Right total knee arthroplasty. Degenerative arthritis. Postop. FINDINGS: The patient is status post a right total knee arthroplasty. The hardware is intact. No frac ture or dislocation. Skin devonte are in place. IMPRESSION: Right total knee arthroplasty. No evidence for hardware complication. ACT 112: Negative or not required by law. Electronically signed by: Saji Dukes M.D. 07/10/2022 3:45 PM
[2022-07-10] MEDS ORDERED: diphenhydrAMINE Capsule 25 MG CAP PO PRN (16:00)
[2022-07-10] MEDS ORDERED: NALOXONE HCL 0.4 MG/1 ML VIAL/CARP IV PRN (16:00)
[2022-07-10] MEDS ORDERED: HYDROmorphone INJ 0.5 MG/0.5 ML SYR IV PRN (16:00)
[2022-07-10] MEDS ORDERED: bisacodyL 10 MG SUPP PR PRN (16:00)
[2022-07-10] MEDS ORDERED: ALUMINUM/MAGNESIUM SUSP 30 ML UDC PO PRN (16:00)
[2022-07-10] MEDS ORDERED: oxyCODONE HCL IR 5 MG TAB (IMMEDIATE RELEASE) PO PRN (16:00)
[2022-07-10] MEDS ORDERED: MAGNESIUM HYDROXIDE SUSP 30 ML UDC PO PRN (16:00)
[2022-07-10] MEDS ORDERED: METOCLOPRAMIDE HCL INJ 5 MG/ML 2 ML VIAL IV PRN (16:00)
[2022-07-10] MEDS: Scopolamine CHECK PATCH PLACEMENT SCH ×2 (16:15→23:36)
[2022-07-10] MEDS: SODIUM CHLORIDE 0.9% 1000ML 1,000 ML IV SCH (16:17)
[2022-07-10] MEDS: KETOROLAC 30 MG/ML VIAL IV SCH ×2 (17:31→22:01)
--- NOTE | 2022-07-10 19:40 | Urology Consultation ---
Date of Consultation July 10, 2022 Assessment & Plan (1) History of urinary retention: Urinary retention is now managed with catheter placement. Would recommend the catheter stay in place for approximately 1 week to allow bladder and urethral rest. I suspect he has a false passage based on the amount of blood in the urine, however this was not directly visualized with the cystoscope due to clots in the urethra. He should try to stay well-hydrated to keep the urine is dilute as possible. If catheter becomes occluded, would recommend gentle hand irrigation to remove any blood clots. Urology will follow along History of Present Illness Reason for Consultation: Urinary retention, inability to place Gill catheter. Attending Physician: Dougie Engle MD History of Present Illness This is a 62-year-old male, previously followed by urology for BPH. He has undergone a TURP in the past with Dr. Duran. He was admitted to the hospital on 07/10/2022 after orthopedic surgery on his knee. Per report, a Gill catheter was placed during surgery, but had essentially no output. Postoperatively he had increasing discomfort and the catheter was removed, however he was unable to void. Straight catheterization was attempted by nursing staff but only blood returned. Urology was consulted for further evaluation catheter placement. At the bedside he appears uncomfortable. He denies any recent weakening of his urinary stream. He has never required cystoscopy since his TURP. A catheter was placed in the following fashion. The patient was prepped and draped in the usual sterile fashion. Verbal consent was obtained. I started by attempting to advance a 0.038 inch zip wire per urethra, however wire curled back on itself and did not advance up to the bladder. I then advanced a 16 Samoan flexible cystoscope per urethra. The pendulous urethra was normal with no strictures or mucosal abnormalities. There was some blood clot which prohibited full view of the bulbar prostatic urethra. Hugging the anterior wall of the urethra and following the mucosa, the cystoscope could be advanced to the bladder without any significant resistance. Once in this location, the zip wire was advanced through the cystoscope and an appropriate amount was curled within the bladder. The catheter was then removed and over the wire advanced a 16 Samoan stockbridge tip catheter. Once this was advanced to the hub, there was good return of urine. The wire was then removed. The catheter balloon was inflated with 10 mL of normal saline. The catheter was attached to gravity drainage. Patient tolerated the procedure well with no acute complications. Allergies Allergy/AdvReac Type Severity Reaction Status Date / Time No Known Allergies Allergy Verified 07/10/22 10:19 Home Medications Medication Instructions Recorded Confirmed Type acetaminophen 500 mg capsule 1,000 mg PO Q6H PRN Pain 01/15/21 07/10/22 History ascorbic acid (vitamin C) 125 mg 125 mg PO QAM 01/15/21 07/10/22 History chewable tablet (Vitamin C) cholecalciferol (vitamin D3) 25 25 mcg PO QAM 01/15/21 07/10/22 History mcg (1,000 unit) tablet (Vitamin D3) zinc 50 mg tablet 50 mg PO QAM 01/15/21 07/10/22 History aspirin 81 mg tablet 81 mg PO QAM 07/02/22 07/10/22 History acetaminophen 500 mg tablet 1,000 mg PO TID pain 30 days #180 07/08/22 07/10/22 Rx (Tylenol Extra Strength) tabs aspirin 81 mg tablet,delayed 81 mg PO BID 45 days #90 tabs 07/08/22 07/10/22 Rx release (Anastacia Low Dose Aspirin) cefadroxil 500 mg capsule 500 mg PO BID 7 days #14 caps 07/08/22 07/10/22 Rx ketorolac 10 mg tablet 10 mg PO Q6 pain 5 days #20 tabs 07/08/22 07/10/22 Rx ondansetron 4 mg disintegrating 4 mg PO Q8 PRN nausea #20 tabs 07/08/22 07/10/22 Rx tablet oxycodone 5 mg tablet 5 - 10 mg PO Q6 PRN pain #40 tabs 07/08/22 07/10/22 Rx sennosides 8.6 mg tablet (Senokot) 8.6 mg PO BID prevent constipation 07/08/22 07/10/22 Rx 14 days #28 tabs tamsulosin 0.4 mg capsule (Flomax) 0.4 mg PO DAILY #7 caps 07/08/22 07/10/22 Rx Patient History Medical History Chronic prostatitis GERD (gastroesophageal reflux disease) rare, stable per pt Hearing loss in left ear History of acute pancreatitis 4 YR AGO History of bladder stone History of COVID-19 12/2020- covid pneumonia, hospitalized; no current issues History of urinary retention Sleep-disordered breathing snoring and witnessed apneas, no previous sleep study Surgical History History of biliary duct stent placement History of colonoscopy History of cystoscopy for stone removal History of ERCP numerous for exam and stent exchange - no longer has stent Family History Mother Family history of skin cancer Other No family history of adverse response to anesthesia Social History Smoking Status: Former smoker Age Quit Using Tobacco: 30; Cigarettes Per Day: quit smoking 20 yrs ago; Second Hand Exposure: No; Do You Dip or Chew Tobacco: Yes (chews non tobacco "tea"- advised); Tobacco Cessation Education Requested by Patient: No Hx Alcohol Use: No Hx Substance Use: No Preferred Language: Malawian Communication Ability: Effective Visual Impairment: No Limitations Cardiac Cath Lab Manager Required: No Beliefs That Will Affect Care: None Current Living Situation: Spouse Other Information That Helps Us Care for You: No Feels Safe at Home: Yes Safety Concerns: Feels Safe At This Time Assistive Devices: None Review of Systems Review of Systems: 12 point review of systems negative except for otherwise indicated. Physical Exam Physical Exam: Well-appearing, NAD Constitutional: well developed and well nourished; no acute distress Eyes: + anicteric sclerae; pupils not irregular Respiratory: normal respiratory effort; no respiratory distress, does not use accessory muscles and no cough Cardiovascular: well perfused Gastrointestinal (Abdomen): Inspection/Auscultation: abdomen normal to inspection; abdomen not distended Musculoskeletal: Right leg with postop dressing in place. Skin: normal turgor; no rashes and no lesions Neurologic: moves all extremities and awake Psychiatric: Orientation: alert and oriented x 3 Genitourinary: Gill catheter placed with return of red urine. Urine ranged from dark maroon to almost yellow in appearance. Results & Data Vital Signs (Past 12 Hours) Vital Signs Temp Pulse Pulse Resp BP BP Pulse Ox 07/10/22 18:00 36.6 C 75 18 173/76 H 95 07/10/22 17:09 79 16 150/93 H 97 07/10/22 16:30 70 16 143/82 H 95 07/10/22 16:01 36.5 C 69 16 133/78 93 07/10/22 15:45 36.2 C L 75 16 124/85 94 07/10/22 15:40 36.2 C L 81 20 135/80 94 07/10/22 15:30 81 20 149/84 H 94 07/10/22 15:20 83 16 148/78 H 94 07/10/22 15:10 81 16 130/73 94 07/10/22 15:03 36.0 C L 89 17 137/68 95 07/10/22 10:25 36.6 C 69 20 146/85 H 96 O2 Del Method 07/10/22 18:00 Room Air 07/10/22 17:09 Room Air 07/10/22 16:30 Room Air 07/10/22 16:01 Room Air 07/10/22 15:45 Room Air 07/10/22 15:40 Room Air 07/10/22 15:30 Room Air 07/10/22 15:20 Room Air 07/10/22 15:10 Room Air 07/10/22 15:03 Room Air 07/10/22 10:25 Room Air PG Care Time/CCT Total # of Minutes Spent Total Time Spent with Patient: Total time spent is greater than 50% in coordination of care (as documented) at patient's floor/unit and/or counseling patient: Coding Level of Care Code 65649 OFFICE CONSULT LVL Diagnoses History of urinary retention Z87.898
[2022-07-10] MEDS ORDERED: TRANEXAMIC ACID / 0.7% NACL 1,000 MG/100 ML BAG IV SCH (21:00)
[2022-07-10] MEDS ORDERED: SENNA 8.6 MG TAB PO SCH ×2 (21:00)
[2022-07-10] MEDS: DOCUSATE SODIUM 100 MG CAP PO SCH (22:02)
[2022-07-10] MEDS: ACETAMINOPHEN 500 MG TAB PO SCH (22:04)
[2022-07-10] MEDS: ASPIRIN 81 MG ECTAB PO SCH (22:04)
[2022-07-10] MEDS: ceFAZolin 2000MG 2,000 MG/15 ML SYR IV SCH (22:08)
[2022-07-11] MEDS: SODIUM CHLORIDE 0.9% 1000ML 1,000 ML IV SCH (02:48)
[2022-07-11] MEDS: ceFAZolin 2000MG 2,000 MG/15 ML SYR IV SCH (04:33)
[2022-07-11] MEDS: KETOROLAC 30 MG/ML VIAL IV SCH ×2 (04:34→09:51)
[2022-07-11 05:55] LABS: Hematocrit (blood only) 39.8 % (42.0-52.0); Hemoglobin 13.9 g/dl (14.0-18.0); Mean Corpuscular Hemoglobin 31.6 pg (25.0-34.0); Mean Corpuscular Hgb Conc 34.9 g/dL (32.0-36.0); Mean Corpuscular Volume 90.5 fL (80.0-100.0); Mean Platelet Volume 9.3 fL (9.4-12.4); Platelet Count 175 K/uL (130-400); RDW Coefficient of Variation 12.1 % (11.5-14.5); RDW Standard Deviation 40.1 fL (36.4-46.3); White Blood Count 10.54 K/ul (4.8-10.8)
[2022-07-11 06:10] LABS: BUN Creatinine Ratio 17.4 (10-20); Calcium 8.3 mg/dl (8.6-10.3); Creatinine Clr Calc Pharmacy 118.4 ml/min; Est GFR (African American) 103.7 ml/min; Est GFR (Non-African American) 89.5 ml/min; Potassium 4.1 mmol/L (3.5-5.1)
[2022-07-11] MEDS ORDERED: dexAMETHasone 10 MG in SYRINGE 0 ML IV SCH (08:00)
--- NOTE | 2022-07-11 08:46 | Urology Progress Note ---
Date of Service July 11, 2022 Assessment & Plan (1) History of urinary retention: Plan: Igll catheter was placed by Dr. Haile via cystoscopy at bedside yesterday evening. Urinary retention is now managed with Gill catheter. Catheter required manual irrigation x 1 overnight. Urine seems to be clearing today. Gill patent and draining yellow urine with very minimal pink tinge this am, no clots noted. Recommend maintain catheter in place for approximately 1 week to allow bladder and urethral rest. He should stay well-hydrated to keep the urine dilute. If catheter becomes occluded, would recommend gentle hand irrigation to remove any blood clots. From urology standpoint, the patient can be discharged to home with Gill catheter when stable from medical/ortho perspective. Will arrange outpatient follow-up with our service for voiding trial and further management. will sign off. Admission and Anticipated Discharge Date Admission Date: July 10, 2022 Subjective Patient seen and examined at bedside this morning. He is awake, alert and sitting up in bed. He reports catheter required irrigation x1 overnight. He is tolerating Gill catheter. Gill is patent and draining yellow urine with very minimal pink tinge this morning. No nausea or vomiting. No fever or chills. Review of Systems Constitutional: as per Subjective / HPI Gastrointestinal: as per Subjective / HPI Genitourinary: + as per Subjective / HPI Physical Exam Constitutional: well developed and well nourished; no acute distress Respiratory: normal respiratory effort; no respiratory distress and no labored breathing Musculoskeletal: Head/Neck/Chest: normocephalic and head atraumatic Neurologic: awake Psychiatric: Orientation: alert and oriented x 3 Genitourinary: Gill patent and draining yellow urine with very minimal pink tinge Results & Data Vital Signs (Past 12 Hours) Vital Signs Temp Pulse Resp BP Pulse Ox O2 Del Method 07/11/22 07:41 36.5 C 69 18 129/92 92 Room Air 07/11/22 02:39 36.5 C 73 18 137/78 93 Room Air 07/10/22 22:27 36.6 C 70 18 151/72 H 94 Room Air PG Care Time/CCT Total # of Minutes Spent Total Time Spent with Patient: Total time spent is greater than 50% in coordination of care (as documented) at patient's floor/unit and/or counseling patient: Coding Level of Care Code 07252 SUB INP/OBS CARE 1/25MIN Diagnoses History of urinary retention Z87.898
[2022-07-11] MEDS ORDERED: ZINC SULFATE 220 MG CAPSULE PO SCH (09:00)
[2022-07-11] MEDS ORDERED: MULTIVITAMIN TAB PO SCH (09:00)
[2022-07-11] MEDS ORDERED: TAMSULOSIN HCL 0.4 MG CAP PO SCH (09:00)
[2022-07-11] MEDS ORDERED: CHOLECALCIFEROL 1,000 UNITS 25 MCG TAB PO SCH (09:00)
[2022-07-11] MEDS ORDERED: ASCORBIC ACID 125 MG PO SCH (09:00)
[2022-07-11] MEDS: DOCUSATE SODIUM 100 MG CAP PO SCH (09:52)
[2022-07-11] MEDS: ACETAMINOPHEN 500 MG TAB PO SCH (09:52)
[2022-07-11] MEDS: ASPIRIN 81 MG ECTAB PO SCH (09:53)
[2022-07-11] MEDS: Scopolamine CHECK PATCH PLACEMENT SCH (10:04)
--- NOTE | 2022-07-11 10:05 | Orthopedic Progress Note ---
Date of Service July 11, 2022 Assessment & Plan (1) Status post total right knee replacement: He was seen and examined by Dr. Engle. Pain is controlled. Patient feels ready to go home today, with home health. He did have a catheter placed yesterday due to urinary retention. They recommend follow up in 1 week. Continue PT/OT dvt prophylaxis with teds/scd's, and aspirin. discharge home today with home health Subjective .62 year old patient POD #1 from right tka. Pain is controlled. He did have urology consult and wallis catheter placed due to urinary retention. Review of Systems All systems reviewed & are unremarkable except as noted in HPI & below. Physical Exam .alert and oriented. NAD. VSS Ambulating in hallway with PT at this time. Results & Data Results & Data Laboratory Results . Diagnostic Findings . PG Care Time/CCT Total # of Minutes Spent Total Time Spent with Patient: Total time spent is greater than 50% in coordination of care (as documented) at patient's floor/unit and/or counseling patient: Coding Level of Care Code 91318 Post Operative Follow-Up Diagnoses Status post total right knee replacement Z96.651
--- NOTE | 2022-07-18 07:48 | Discharge Summary ---
Date of Service July 18, 2022 Discharge Data Consultations 07/10/22 17:57 Consult Urology Stat 07/10/22 18:02 Consult Urology Stat Procedures Performed Operation Date: 07/10/22 12:00 Actual Procedures p Right Total Knee Arthroplasty(Right) - Dougie Engle MD Hospital Course (1) Status post total right knee replacement: This is a 62 year old patient admitted on 07/10/22 and underwent total knee arthroplasty. He tolerated the procedure well and there were no complications. Transferred to the PACU post op and later to the orthopedic floor for further care. He was given ancef for antibiotic prophylaxis. He was also given HORACE stockings, SCDs, and aspirin for DVT prophylaxis. Hemoglobin, hematocrit, and vital signs were monitored during his hospital stay and remained stable. Did not require any blood transfusions. There were no complications during his hospital stay. He did have some urinary retention post op and urology was consulted. They placed a wallis catheter and recommend leaving this in for 1 week. Follow up with urology in 1 week. By post op day #1 the patient was tolerating a regular diet, pain was reasonably controlled with oral pain medicine, and he was participating in physical therapy. On post op day #1 the patient was discharged home and set up with home health care. He was given printed discharge instructions including prescriptions for extra strength tylenol, aspirin, cefadroxil, zofran, oxycodone, and senokot. Continue physical therapy, weight bearing as tolerated. Continue HORACE stockings. Follow up approximately 2 weeks post op or sooner if there are problems or concerns. Coding Level of Care Code None Diagnoses Status post total right knee replacement Z96.651
== END 2022-07-11 14:53 | disposition home health service (06) ==
LOC: 3E 10:00 → ASU 10:00